=== PATIENT | male | born 1950 | race Caucasian/White ===

== ENCOUNTER 2022-09-19 12:03 | Outpatient (REF) | payer MEDICARE, SELFPAY ==
[2022-09-19 15:02] LABS: Prostate Specific Antigen 0.77 ng/mL (<0.05-4.0)
== END 2022-09-19 12:04 | disposition home or self-care (01) ==
LOC: HO.MANLDS 12:03
PROVIDERS: Visit Provider Internal Medicine
DX: N40.1 Benign prostatic hyperplasia with lower urinary tract symptoms (principal); Z12.5 Encounter for screening for malignant neoplasm of prostate
CPT/HCPCS: 36415; 84153

== ENCOUNTER 2025-01-18 14:15 | Outpatient (REF) | payer MEDICARE, SELFPAY ==
--- OUTSIDE RECORDS SUMMARY | 2025-01-18 17:58 | XMS_ITS | Data Portability ---
Author Organization [place] - [facility], Allergy Address [address] [place] [id number] Care Team Providers Care [employer] Clerk Name Role Phone JAYNA VEGA Primary Care Provider [phone] Assessment Encounter Date Assessment Date Assessment LastModified by Organization Details LastModified Time 12/02/2024 12/02/2024 The patient demonstrates hearing loss, primarily attributed to nerve loss. There is no evidence of issues with the small bones in the ears or the eardrum. Wax buildup was removed during the visit, and hearing aids are recommended to address the hearing loss. The patient does not require surgical intervention. 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 I do not see any evidence of fluid and given the normal tuning fork's and the updated audiometric testing I think the cerumen may have been interfering with his testing The patient has coverage for [employer] through secondary insurance, which will be utilized for hearing aids. Counseling was provided regarding the potential differences in quality between hearing aids covered by insurance and higher-end models. The patient was advised to evaluate the hearing aids and return them if unsatisfied. Follow-up instructions were provided to ensure the patient receives appropriate hearing aids and support. Procedure Documentation: - Wax removal performed bilaterally using suction vacuum. [email or web address] Not available 12/02/2024 14:38:20 Plan of Treatment Reminders Order Date Submit Date Provider Last Modified By Organization Details Last Modified Time Details Appointments None record ed. Lab None record ed. Referral None record ed. Procedures None record ed. Surgeries None record ed. Imaging None record ed. Medication Orders None record ed. Patient TargetsNo targets recorded. Patient Instructions Encounter Date Encounter Id Patient Instructions Last Modified By Organization Details Last Modified Time 12/02/2024 [id number] - Evaluate hearing aids covered by [employer] insurance. - Return hearing aids if unsatisfied. - Follow up to ensure appropriate hearing aids and support. [email or web address] Not available 12/02/2024 14:37:11 Please note: Parts of this encounter note have been generated by AI based on audio conversation. Patient consent was required prior to utilizing this technology. Content review was required prior to finalizing the note. [email or web address] Not available 12/02/2024 14:37:11 Reason for Referral None Reported. Results Created Date Observation Date Name Description Value Unit Range Abnormal Flag Note LastModifiedBy Organization Detail LastModifiedTime 12/03/19 25 audio gram No observ ation record ed. BARCODE Not Available 2024 14:56:04 Result Notes None recorded. Problems Name Problem SNOMED Code Status Onset Date Resolution Date Notes Provider Name and Address Organization Details Recorded Time Impacted cerumen of bilateral ears 1613770057816 108 Active 2024 ROSA ISELA ALCAZAR MD [address] [place] [address], [phone], [facility] 13:49:53 Sensorineur al hearing loss of bilateral ears 737506743 Active 2024 GONZAL[address] NAVAS [address], [phone], [facility] 14:13:35 Problem Notes None recorded. Procedures Surgical History Date Name Laterality Status Provider Name and Address Organization Details Recorded Time Comp Audio with Tymps - 24831 & 03026 completed STAR GARCIA [address] [place] [address],[address], [phone], [facility] - [facility] 12/02/2024 14:13:32 hernia repair completed Laquita Hamilton [facility] 12/02/2024 13:49:45 Imaging Results None recorded. Procedure Notes None recorded. Medical Equipment None Reported. Allergies Allergen ID Allergen Name Allergen Category Reaction Reaction Severity Criticality Documentation Date Start Date Code Code System Note Provider Name and Address Organization Details Recorded Time 470813 Iodinated contrast media (substanc e) medicatio n Not available Not available Not available 12/02/2024 50091 2003 SNOMED Laquita collins [place] - [facility] 5 13:38:48 Medications Name Sig Start Date Stop Date Status Note LastModified by Organization Details LastModified Time alprazolam 1 mg tablet TAKE 1 TABLET BY MOUTH 3 TIMES A DAY NEEDED FOR PANIC ATTACK active Not Available Not Available No t Available fluconazole 150 mg tablet TAKE 1 TABLET BY MOUTH EVERY DAY FOR 7 DAYS 12/02 completed Not Available Not Available Not Available divalproex 500 mg tablet,winston yed release TAKE 1 TABLET BY MOUTH TWICE A DAY active Not Available Not Available No t Available morphine ER 30 mg tablet,exte nded release TAKE 1 TABLET BY MOUTH TWICE A DAY. TAKE IN THE MORNING AND THEN 12 HOURS LATER. active Not Available Not Available No t Available tamsulosin 0.4 mg capsule TAKE 1 CAPSULE BY MOUTH EVERY DAY active Not Available Not Available No t Available morphine 30 mg immediate release tablet TAKE 1 TAB BY MOUTH THREE TIMES A DAY DIRECTED FOR SEVERE PAIN 12/02 completed Not Available Not Available Not Available paroxetine 30 mg tablet TAKE 1 TABLET BY MOUTH EVERY DAY active Not Available Not Available No t Available clotrimazol e-betametha sone 1 %-0.05 % topical cream PLEASE SEE ATTACHED FOR DETAILED DIRECTION S 12/02 completed Not Available Not Available Not Available Flovent 110 mcg/actuati on aerosol inhaler Inhale 1 puff twice a day by inhalatio n route. active Not Available Not Available No t Available albuterol sulfate HFA 90 mcg/actuati on aerosol inhaler TAKE 2 PUFFS BY MOUTH EVERY 4 HOURS NEEDED active Not Available Not Available No t Available Lomotil 2.5 mg-0.025 mg tablet Take 2 tablets 4 times a day by oral route. active Not Available Not Available No t Available ipratropium bromide 42 mcg (0.06 %) nasal spray USE 1 TO 2 SPRAYS IN EACH NOSTRIL 4 TIMES A DAY NEEDED active Not Available Not Available No t Available ketoconazol e 2 % topical cream APPLY TO AFFECTED AREA TWICE A DAY 12/02 completed Not Available Not Available Not Available fluticasone propionate 50 mcg/actuati on nasal spray,suspe nsion [place] 1 spray every day by intranasa l route. active Not Available Not Available No t Available finasteride 5 mg tablet TAKE 1 TABLET BY MOUTH EVERY DAY FOR 30 DAYS active Not Available Not Available No t Available cyclobenzap rine 5 mg tablet TAKE 1 TAB UP TO 2 TIMES PER DAY NEEDED FOR MUSCLE SPASM. 3 MONTH SUPPLY 12/02 completed Not Available Not Available Not Available azelastine 137 mcg-flutica sone 50 mcg/spray nasal spray SPRAY 1 SPRAY INTO EACH NOSTRIL TWICE A DAY 2024 active Not Available Not Available Not Avai lable buprenorphi ne 7.5 mcg/hour weekly transdermal patch APPLY 1 PATCH TO SKIN WEEKLY, 1 MONTH SUPPLY 12/02 completed Not Available Not Available Not Available Vitals Date Recorded Body height Body mass index (BMI) Body weight Provider Name and Address Organization Details Last Updated DateTime 12/02/2024 180.34 cm 26.5 kg/m2 69676.55 g Laquita Hamilton [place] - [facility] 12/02/2024 13:38:41 Social History None recorded. Functional Status None recorded. Mental Status None recorded. Family History Nothing Reported. Medical History Condition Response Depression Y Arthritis Y Allergies/Hayfever Y Anxiety Y Asthma Y Hypertension Y Past Encounters Encounter ID Performer Location Encounter Start Date Encounter Closed Date Diagnosis/Indication Diagnosis SNOMED-CT Code Diagnosis ICD10 Code Diagnosis IMO Codes Diagnosis Note [id number] ROSA ISELA SCHMIDT MD [facility] [address] [address] 12/02/2024 12:46:17 12/02/2024 14:38:53 Impacted cerumen of bilateral ears [id number] 596328 H61.23 067919 Sensorineu ral hearing loss of bilateral ears 960253426 H90.3 [id number] STAR GARCIA [facility] [address] [address] 12/02/2024 14:12:24 12/06/2024 14:00:53 Sensorineural hearing loss of bilateral ears 350319514 H90.3 [id number] Audiologic al evaluation results: Right ear: Mild sloping to profound sensorineu ral hearing loss with excellent word recognitio n. Left ear: Mild sloping to severe sensorineu ral hearing loss with excellent word recognitio n. Tympanomet ry: Right Ear:Type A Left Ear:Type C Health Concerns Section Related Observation LastModified by Organization Detai ls LastModified Time None Recorded Concern Status LastModified by Organization Details LastModified Time None Recorded Advance Directives Directive None Recorded Payers Insurance Date Sequence Insurance Name Policy Number Policy [place] Covered Member ID [place] Member ID Guarantor Name 12/02/2024 1 [place] [employer] [employer] Sha Tinajero Jr [id number] Sha Tinajero 12/02/2024 2 [place] [id number] Sha Tinajero Jr [id number] Sha Tinajero Notes Date Note Type Note Provider Name and Address Organization Details Recorded Time 12/02/2024 text/html Sha Tinajero is a 74-year-old male who presents for evaluation of bilateral hearing loss. The patient reports experiencing ringing in both ears for as long as he can remember, with symptoms becoming very noticeable over the last couple of years. He was previously evaluated in September at [facility], where mixed hearing loss was identified, and it was recommended that he see an ear, nose, and throat specialist due to concerns about potential issues with the small bones in the ears. 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 ROSA ISELA TURNER MD [address] [place] [address], [phone], [facility] 12/02/2024 14:38:34
--- OUTSIDE RECORDS SUMMARY | 2025-01-18 17:58 | XMS_ITS | Data Portability ---
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 stockings for leg edema will also have him see a vascular dr for eval of poss etiologies as i am unable to determine [id number] Harvey Vega [facility] [address], [place] [address] 06/16/2018 14:56:00 06/16/2018 16:16:38 Edema of lower extremity 823842724 R60.0 will wear support stockings for leg edema will also have him see a vascular dr for eval of poss etiologies as i am unable to determine Reactive a irway disease 9837577729 06 J45.909 doing very welll now asymptomat ivc seen by dr clement Anxiety 03405981 F41.9 hard to sleep at night [id number] Harvey Vega [facility] [address] [facility],[place] [id number] 12/08/2018 14:46:15 12/08/2018 16:05:14 Panic disorder 084920034 F41.0 is having about tw0 episodes during the day but this has been the standard because of the poss of a reaction to the duloxetine i will lower his duloxetine to 30 Edema of l ower extremity 272974422 R60.0 will wear support stockings for leg edema will also have him see a vascular dr for eval of poss etiologies as i am unable to determine Generalize d skin eruption caused by drug and medicament 265883180 L27.0 will decrease the dose to 30mg [id number] Harvey Vega [facility] [address] [facility],[place] [address] 02/11/2019 11:27:27 02/11/2019 12:06:35 Right side sciatica 9975388494 09211 M54.31 [id number] Harvey Vega [facility] [address] [facility],[place] [address] 06/12/2019 14:25:45 06/12/2019 15:26:50 Anxiety 34075923 F41.9 hard to sleep at night relates not doing well since he had decreased the dose back in the fall Panic disorder 267718043 F41.0 is having about tw0 episodes during the day at least and is not functionin g Adult heal examination 230708596 Z00.00 [id number] Harvey Vega [facility] [address] [facility],[place] [address] 08/26/2019 13:57:54 08/26/2019 14:41:00 Edema of lower extremity 085251916 R60.0 will wear support stockings for leg edema has been seen by vascular Benign pro static hyperplasia 152312727 N40.1 psa is 0.97 does well with tamsulosin Panic disorder 114290852 F41.0 has been stable since on duloxetine [id number] Harvey Vega, [facility] [address] [facility], [place] [address] 09/09/2019 10:27:29 09/09/2019 11:20:35 Generalized skin eruption caused by drug and medicament 159919408 L27.0 stop the cortisone cream will have him use lotrimin and cover with desitin after thorouhg== ghly drying with hairspring assembler Benign pro static hyperplasia 179349956 N40.1 psa is 0.97 does well with tamsulosin except having a lot of dripping will need to cont to take this as it makes a huge diff [id number] Harvey Vega, [facility] [address], [place] [address] 06/22/2020 15:07:55 06/22/2020 16:14:34 Anxiety 97314956 F41.9 hard to sleep at night relates not doing well since he had decreased the dose back in the fall but now we are worried about his 30 lb wgt gain? also it seems that the duloxetine has caused a problem with his skin>>>>>? CONSIDER CHANGE TO EFFEXOR Panic disorder 786346126 F41.0 has been stable since on duloxetine but question if having symptoms as noted above Tinea corporis 14585033 B35.4 use the ketoconaoz le STOP USING IVORY SOAP AND DETERGENT SOAP add difucan tablet and prednisone Tinea pedis 1165500 B35. 3 will have him [place] ketoconazo le [id number] Harvey Vega, [facility] [address] [facility],[place] [address] 07/06/2020 15:56:54 07/06/2020 16:41:46 Edema of lower extremity 694480845 R60.0 will wear support stockings for leg edema has been seen by vascular Anxiety 26699375 F41.9 much better and we will cont venalfax Depressive disorder 3541 9005 F32.9 has been a n issue but is finally doing better [place] [id number] Harvey Vega [facility] [address] [facility],[place] [address] 10/18/2020 13:54:26 10/18/2020 14:58:40 Anxiety 76185354 F41.9 we will have to try the paxil again per pt request Edema of l ower extremity 228012860 R60.0 will wear support stockings for leg edema has been seen by vascular [id number] Harvey Vega [facility] [address] [facility], [place] [address] 11/25/2020 14:26:59 11/25/2020 15:35:04 Tinea cruris caused by Trichophyton rubrum 50013754 B35.6 Edema of l ower extremity 729894248 R60.0 will wear support stockings for leg edema discussed the use of zipper support hose has been seen by vascular Tobacco de pendence syndrome 37902511 F17.200 not stopping Abdominal aortic aneurysm screening 712976481 Z13.6 [id number] Harvey Vega, [facility] [address] [facility], [place] [address] 07/25/2021 15:50:49 07/25/2021 16:39:04 Anxiety 15834343 F41.1 will increase Panic disorder 462865945 F41.0 stable on current dose of xanax Benign pro static hyperplasia with outflow obstruction 508082637 N13.8 needs refill of his medication Muscle pain 46222495 M79 .18 the patient has multiple aches in mutliple places after the vaccinewil l hold on work up Seborrheic dermatitis 50 205701 L21.8 currently doing okayif he has another flare up he can call for treatment Lymphedema of lower extremity 886997388 I89.0 bilateral, R>L, uses compressio n stockingsa lready saw the lymphedema clinic, no improvemen t with methods they used [id number] Harvey Vega [facility] [address] [facility],[place] [address] 09/19/2022 11:22:46 09/19/2022 13:32:37 Panic disorder 106549653 F41.0 we have him back on the paxil and he seems stable with this and also has noted to have gained wgt since then Anxiety 02053754 F41.9 we will have to try the paxil again per pt request Benign pro static hyperplasia 474254807 N40.1 psa is 0.97 does well with tamsulosin except having a lot of dripping will need to cont to take this as it makes a huge diff Lymphedema of lower extremity 570618230 I89.0 cont to have him with the usual treatment we have done for years Rash of groin 0100919867 9674478 R21 noted since the prostate leakage of urine Localized eruption of skin 479494082 R21 has tinea of his left axilla will use the betameth clotrim Pain of le ft ankle joint 5566819567 4188050 M25.572 will start with an xr [id number] Harvey Vega [facility] [address] [facility],[place] [address] 10/02/2023 13:51:39 10/02/2023 14:53:09 Renewal of prescription 738134988 Z76.0 done Depression screening 171 409726 Z13.31 equiv Irritable bowel syndrome with diarrhea 452341451 K58.0 needs refill Tinea cruris 267166451 B 35.6 Hearing loss 15801151 H9 1.93 Adult heal th examination 540671417 Z00.00 [id number] Harvey Vega [facility] [address] [facility],[place] [address] 05/25/2024 08:30:44 05/25/2024 16:16:49 Edema of lower extremity 784643947 R60.0 will wear support stockings for leg edema discussed the use of zipper support hose has been seen by vascular Panic disorder 131472304 F41.0 we have him back on the paxil and he seems stable with this and also has noted to have gained wgt since then Benign pro static hyperplasia 905717506 N40.1 psa is 0.97 does well with tamsulosin except having a lot of dripping will need to cont to take this as it makes a huge diff but we will add finasterid e 5 mg and he will get back to me in a month Male hot flash 866911046 1 50780 R23.2 will try black cohosh let me klnow [id number] Harvey Vega, [facility] [address] [facility],[place] [address] 09/25/2024 15:01:25 09/25/2024 15:43:18 Depression screening 938855190 Z13.31 equiv Exudative age-related macular degeneration 899908007 H35.3211 04670759 having active treatment with [facility] Left inguinal hernia 236 260934 K40.90 279421 Pre-surger y evaluation 707360700 Z01.818 is here for surgical pre op eval and is certainly cleared for his proposed cataract removal Health Concerns Section Related Observation LastModified by Organization Detai ls LastModified Time None Recorded Concern Status LastModified by Organization Details LastModified Time None Recorded Advance Directives Directive None Recorded Payers Insurance Date Sequence Insurance Name Policy Number Policy Valencia Covered Member ID Valencia Member ID Guarantor Name 2025 2 [place] [id number] Sha Tinajero Jr [id number] Sha Tinajero 2025 1 [place] [employer] Sha Tinajero Jr [id number] Sha Tinajero Notes Date Note Type Note Provider Name a nd Address Organization Details Recorded Time 07/25/2021 text/html ROS as noted in the HPI medication check the patient was on paxil prior, found out he was on 30 mgmedication adjusted in the chart to appropriate dosing the patient reports that he is doing wellthe patient reports muscle aches > stable for now, the patient reports that they are doing well todaywill monitor now the patient reports previous rash, possibly seborrheic dermatitisif it comes back told to call for treatment options refilled medication varicose veins bilateral LE'swill monitor ALISA BELL [address] [facility], [place], [address], [facility] 07/25/2021 16:36:20 09/19/2022 text/html ROS as noted in the HPI here for his follow up of his medsalso states that he has been having issues with urine leakage states has been getting rash in groin prob from moisturealso states he stopped the flomax on his own and states this may have helped a little but is still a problemhas been having some bilat ankle pain and is along the dorsiflexor area L>R he is sedentary back pain is his usualstill smoking as usual Harvey Vega DO [address] [place], [address], [facility] 09/19/2022 11:51:49 10/02/2023 text/html needs refill for his abdomen Harvey Vega DO [address] [place] [address], [phone], [facility] 10/02/2023 14:48:03 05/25/2024 text/html ROS as noted in the HPI patient is evaluated via tele/video assessment per patient consentduring current pandemicappt is for a med check Harvey Vega DO [address] [place] [address], [phone], [facility] 05/25/2024 16:00:21 09/25/2024 text/html ROS as noted in the HPI here for medication reviewalso has a poss hernia on left no painful present for over a monthalso has wet mac degen OD and getting injections to retina Harvey Vega DO [address] [place], [address], [facility] 09/25/2024 15:38:18
--- OUTSIDE RECORDS SUMMARY | 2025-01-18 17:59 | XMS_ITS | Continuity of Care Document ---
Author Organization [facility], [facility] Address [address] [facility] [place] [address] Assessment Encounter Date Assessment Date Assessment LastModified by Organization Details LastModified Time 01/18/2025 01/18/2025 Patient presente d to office today for their Medicare Annual Wellness Visit. Education was provided on healthy nutrition, including a diet rich in fruits and vegetables, minimizing simple carbohydrates, salt, and saturated fats. Encouraged regular cardiovascular exercise such as walking at least 30 minutes daily, 5 times per week. Emphasized preventive health measures and educated pt on fall prevention and community-based lifestyle interventions to help reduce health risks and promote healthy living. [email or web address] Not available 01/13/2025 11:06:45 Plan of Treatment Reminders Order Date Submit Date Provider Last Modified By Organization Details Last Modified Time Details Appointments MEDICARE ANNUAL WELLNESS 2024 01:30P M DR VEGA Not available Not available Not available Lab hemoglobi n, gastroint estinal, stool 2024 [facility], [address] [place] [address], [address], 01/18/2025 14:16:34 C-reactiv e protein, quantitat sera, serum or plasma 2024 025 [facility], [address] [place] [address], [place], [address], 01/18/2025 14:16:33 CBC 2024 [facility], [address] [place] [address], [address], 01/18/2025 14:16:34 CMP, serum or plasma 2024 [facility], [address] [place] [address], [place], [address], 01/18/2025 14:16:34 ESR (erythroc yte sedimenta tion rate), blood 2024 [facility], [address] [place] [address], [place], [address], 01/18/2025 14:16:33 vitamin B12, serum 2024 [facility], [address] [place] [address], [place], [address], 01/18/2025 14:16:34 TSH, serum or plasma 2024 [facility], [address] [place] [address], [place], [address], 01/18/2025 14:16:34 Referral None recorded. Procedures None recorded. Surgeries None recorded. Imaging None recorded. Medication Orders None recorded. Patient TargetsNo targets recorded. Patient Instructions Encounter Date Encounter Id Patient Instructions Last Modified By Organization Details Last Modified Time 01/18/2025 [id number] Discussed and explained advance directives such as standard forms to the . Face to face discussion lasted for a duration of ___ minutes. [email or web address] Not available 01/13/2025 11:06:45 Reason for Referral None Reported. Problems Name Problem SNOMED Code Status Onset Date Resolution Date Notes Provider Name and Address Organization Details Recorded Time Irritabl e bowel syndrome 14186292 Active 2017 Not Available [facility] 4 09:45:47 Hyperten sive disorder 80617996 Completed 201703/12/2018 Harvey Vega, DO [address] [place], [address], [facility] 8 14:57:54 Pilonida l cyst 49531433 Active 2017 Not Available [facility] 4 09:45:47 Rosacea 674691818 Active 2017 Not Available [facility] 4 09:45:47 Anxiety 57071331 Active 2017 Not Available [facility] 4 09:45:47 Panic disorder 727329553 Active 2017 Not Available [facility] 4 09:45:47 Benign prostati c hyperpla marlene 127309630 Active 2017 Not Available [facility] 4 09:45:47 Reactive airway disease 30775679956 6 Active 2017 Not Available [facility] 4 09:45:47 Edema of lower extremit y 198470316 Active 2018 Not Available [facility] 4 09:45:47 Tinea cruris caused by Trichoph yton rubrum 37976285 Active 2020 Not Available [facility] 4 09:45:47 Tobacco dependen ce syndrome 30349582 Active 2020 Not Available [facility] 4 09:45:47 Benign prostati c hyperpla marlene with outflow obstruct ion 954426001 Active 2021 Not Available [facility] 4 09:45:47 Muscle pain 19900642 Active 2021 Not Available [facility] 4 09:45:47 Seborrhe ic dermatit is 92958858 Active 2021 Not Available [facility] 4 09:45:47 Lymphede ma of lower extremit y 514200190 Active 2021 Not Available [facility] 4 09:45:47 Rash of groin 42700007557 491563 Active 2022 Not Available [facility] 4 09:45:47 Localize d eruption of skin 700841508 Active 2022 Not Available [facility] 4 09:45:47 Pain of left ankle joint 25031551558 093294 Active 2022 Not Available [facility] 4 09:45:47 Tinea cruris 986777285 Active 2023 Harvey Vega DO [address] [place] [address], [address], [facility] 4 14:33:36 Irritabl e bowel syndrome with diarrhea 925695196 Active 2023 Harvey Vega DO [address] [place] [address], [address], [facility] 4 14:40:57 Hearing loss 50181836 Active 2023 Harvey Vega DO [address] [place] [address], [address], [facility] 4 14:45:56 Male hot flash 37285739123 9100 Active 2024 Harvey Vega DO [address] [place] [address], [address], [facility] 5 15:59:19 Exudativ e age-rela sarita macular degenera tion 675661563 Active 2024 Harvey Vega DO [address] [place] [address], [address], [facility] 5 15:35:10 Left inguinal hernia 800760255 Active 2024 Harvey Vega [address] [place] [address], [address], [facility] 5 15:36:17 Fatigue 08132876 Active [address], [address], [facility] 5 14:09:14 Problem Notes None recorded. Procedures Surgical History Date Name Laterality Status Provider Name and Address Organization Details Recorded Time 03/04/20 19 Colonoscopy completed Harvey Vega DO [address] [place] [address], [address], [facility] 03/04/2019 15:39:05 Imaging Results None recorded. Procedure Notes None recorded. Medical Equipment None Reported. Allergies Allergen ID Allergen Name Allergen Category Reaction Reaction Severity Criticality Documentation Date Start Date Code Code System Note Provider Name and Address Organization Details Recorded Time 2606 Iodinated contrast media (substanc e) medicatio n Not available Not available Not available 03/12/2018 39712 2004 SNOMED Pt said he only had a react ion once and unsur e of if this is the cause . [facility] 0 14:05:56 4638 venlafaxi ne medicatio n rash moderate Not available 10/18/2020 44859 RxNorm Harvey Vega, DO [address] [place], [address], [facility] Internal [facility] 1 14:07:32 4639 duloxetin e medicatio n Not available Not available Not available 10/18/2020 50346 RxNorm Harvey Vega, DO [address] [place], [address], [facility] 1 14:07:38 Medications Name Sig Start Date Stop [...] Details Last Updated DateTime 5 172.72 cm 24.6 kg/m2 19589.5 3 g 64 /min 94 % 94 % 110/70 mm[Hg] Abiola Emery [facility] 5 13:39:43 Social History Question Answer Notes LastModified by Organizat ion Details LastModified Time Tobacco Smoking Status Current Some Day Smoker Not Available [facility] 02/02/2020 03:36:24 What Was The Date Of Your Most Recent Tobacco Screening? 01/18/2025 [email or web address] Information not available 01/18/2025 How Much Tobacco Do You Smoke? 0.5 [...] mL dose 07/03/19 21 completed Tanisha collins [facility] 10/17/2020 16:48:03 Influenza, split virus, quadrivalent, preservative 12/13/19 18 completed Sonia collins [facility] 08/26/2019 14:05:15 Pneumococcal conjugate PCV 13 12/13/19 18 completed Sonia collins [facility] 08/26/2019 14:05:15 COVID-19, mRNA, LNP-S, PF, 30 mcg/0.3 mL dose 02/10/20 21 completed ALISA BELL [address] [place] [address], [address], [facility] 02/11/2021 09:43:10 COVID-19, mRNA, LNP-S, PF, 30 mcg/0.3 mL dose 07/14/19 22 completed Lauren collins [facility] 07/14/2021 13:29:33 SARS-COV-2 (COVID-19) vaccine, UNSPECIFIED 03/08/20 23 completed Harvey Vega DO [address] [place] [address], [address], [facility] 03/09/2023 13:05:21 Respiratory syncytial virus (RSV) MAB, unspecified 04/25/19 24 completed Harvey Vega DO [address] [place] [address], [address], [facility] 04/27/2023 15:14:23 SARS-COV-2 (COVID-19) vaccine, UNSPECIFIED 12/03/19 24 completed Harvey Vega [address], [address], [facility] 12/06/2023 06:49:29 influenza nasal, unspecified formulation 12/03/19 24 completed Harvey Vega DO [address] [place] [address], [address], [facility] 12/06/2023 06:49:43 Influenza, split virus, quadrivalent, preservative 12/10/19 19 completed Sonia collins [facility] 08/26/2019 14:05:15 pneumococcal polysaccharide PPV23 01/27/20 19 [facility] 14:05:15 Influenza, split virus, quadrivalent, preservative 01/08/20 20 [facility] 01/12/2020 08:15:59 COVID-19, mRNA, LNP-S, PF, 30 mcg/0.3 mL dose 06/19/19 21 [facility]/22/2020 15:29:17 Past Encounters Encounter ID Performer Location Encounter Start Date Encounter Closed Date Diagnosis/Indication Diagnosis SNOMED-CT Code Diagnosis ICD10 Code Diagnosis IMO Codes Diagnosis Note [id number] Harvey Vega DO [facility] [address] [facility],[address] [place] [address] 01/18/2025 13:29:13 01/18/2025 14:25:30 Screening for malignant neoplasm of colon 070957744 Z12.11 Depression screening 171 754865 Z13.31 equiv Anxiety 89848681 F41.9 we will have to try the paxil again per pt request Fatigue 60800691 R53.83 67037498 not sure where these symptoms came fromhe is apparently back to baseline now but appears profoundly fatigued Health Concerns Section Related Observation LastModified by Organization Detai ls LastModified Time None Recorded Concern Status LastModified by Organization Details LastModified Time None Recorded Payers Encounter Date Sequence Insurance Name Policy Number Policy Valencia Covered Member ID Valencia Member ID Guarantor Name 01/18/2025 2 [place] [id number] Sha Tinajero Jr [id number] Sha Tinajero 01/18/2025 1 [place] [employer] Sha Tinajero Jr [id number] Sha Tinajero Notes Date Note Type Note Provider Name and Address Organization Details Recorded Time text/html Anxiety/DepressionRepor sarita by PatientHPIFor severity, patient reportsdenies suicidal ideations,able to maintain relationships, anddoes not interfere with activities of daily living. For context, patient reportsno major life stressors. For associated symptoms, patient reportsdenies homicidal ideations,no significant weight gain,no significant weight loss,no visual/auditory hallucinations,no delusions,no shortness of breath,mood good,no anxiety,no crying spells,no panic,no isolation,sleeping well,appetite good,energy good,no apathy, andmaintaining functionality. Medicare Annual Wellness VisitReported by PatientSocial/Behaviora l HistoryFor diet and nutrition, patient reportshealthy diet. For fracture risk, patient reportsno history of fractures,no recent explained fracture,no sudden unexplained fractures, andno previous musculoskeletal injuries. For physical activity, patient reportsexercises on a regular basis,recent increase in physical activity, andgood physical condition.Mental Status:For depression risk, patient reportsnever feels sad, empty, or tearful,no loss of interest in activities,no significant changes in weight,no sleep disturbances or insomnia,no agitation,no loss of energy,no feelings of worthlessness or guilt,no thoughts of suicide,no history of depression, andno history of mood disorders. For orientation, patient reportsno disorientation to time,no disorientation to date, andno disorientation to place. For concentration and memory, patient reportsno decreased concentrating ability,no memory lapses or loss, anddoes not forget words. For speech/motor difficulties, patient reportsno speech difficulties,no difficulty expressing formulated concepts,no difficulty with fine manipulative tasks,no difficulty writing/copying,no slowed reaction time, anddoes not knock things over when trying to pick them up.Functional AbilityFor hearing, patient reportsno loss of hearing. For vision, patient reportsno vision problems. For activities of daily living, patient reportsable to bathe with limited or no assistance,able to contol urination and bowels,able to dress with limited or no assistance,able to feed self with limited or no assistance,able to get out of chair or bed with limited or no assistance,able to groom with limited or no assistance, andable to toilet with limited or no assistance. For instrumental activities of daily living, patient reportsable to do house work with limited or no assistance,able to grocery shop with limited or no assistance,able to manage medications with limited or no assistance,able to manage money with limited or no assistance,able to prepare meals with limited or no assistance, andable to use the phone with limited or no assistance. For falls risk assessment, patient reportsno frequent falls while walking,no fall in the past year,no fall since last visit, andno dizziness/vertigo. For home safety, patient reportsno unsafe marixa hazzards,no unsafe stairs,no unsafe gas appliances,working smoke/co detectors,wears protective head gear for biking/high velocity,use of seatbelts,practicing 'safer sex',no vision or hearing loss while driving,no fire arms,has hand bars in the bathroom/shower, andgood lighting in the home.ROS as noted in the HPI here for eval for wpisodes of bladder and bowel incontinenceoccured last week and this lasted 3 days and only happened during sleep Harvey Vega, DO [address] [facility], [place], [address], [facility] 01/18/2025 14:14:05
[2025-01-18 18:28] LABS: MANUAL DIFF FLAG NO
[2025-01-18 18:39] LABS: Hematocrit 37.7 % (42.0-52.0); Hemoglobin 12.8 g/dl (14.0-18.0); Imm Gran Abs Auto 0.01 X10*3/uL (0.00-0.03); Imm Gran Pct Auto 0.2 % (0.0-0.4); Lymphocytes Absolute Auto 1.0 X10*3/uL (1.2-4.9); Mean Corpuscular HGB Conc 34.0 g/dl (31.0-36.0); Mean Corpuscular Hemoglobin 32.4 pg (27.0-33.0); Mean Corpuscular Volume 95.4 fL (80.0-98.0); NRBC Abs Auto 0.000 X10*3/uL (0.0-0.012); NRBC Pct Auto 0.0 /100WBC (0.0-0.2); Platelet Count 135 X10*3/uL (160-400); Red Blood Count 3.95 X10*6/uL (4.60-5.80); White Blood Count 4.5 X10*3/uL (4.8-10.8)
[2025-01-18 18:53] LABS: Alanine Aminotransferase 13 U/L (0-40); Albumin Level 3.5 g/dL (3.5-5.0); Alkaline Phosphatase 41 U/L (39-117); Anion Gap 9 (12-20); Aspartate Amino Transferase 23 U/L (5-37); Blood Urea Nitrogen 20 mg/dL (9-16); Calcium 8.5 mg/dL (8.4-10.2); Carbon Dioxide 33 mmol/L (22-29); Chloride 100 mmol/L (96-108); Estimated Glomerular Filt Rate > 60; Potassium 3.8 mmol/L (3.3-5.1); Sodium 138 mmol/L (135-145); Total Protein 5.6 g/dL (6.5-8.0)
[2025-01-18 19:09] LABS: Thyroid Stimulating Hormone 2.12 uIU/mL (0.32-4.0)
[2025-01-18 19:13] LABS: Vitamin B12 693 pg/mL (200-900)
== END 2025-01-18 14:16 | disposition home or self-care (01) ==
LOC: HO.MANLDS 14:15
PROVIDERS: Visit Provider Internal Medicine
DX: R53.83 Other fatigue (principal)
CPT/HCPCS: 36415; 80053; 82607; 84443; 85025; 85652; 86140

== ENCOUNTER 2025-01-27 18:15 | Outpatient (REF) | payer MEDICARE, SELFPAY ==
[2025-01-30 07:29] LABS: FIT Date 1 10/27/25; FIT Date 2 10/29/25; FIT Int Ctl YES; FIT1 NEGATIVE (NEGATIVE); FIT2 NEGATIVE (NEGATIVE)
[2025-01-30 07:30] LABS: FIT Lot M502755
== END 2025-01-27 18:16 | disposition home or self-care (01) ==
LOC: HO.MANLNP 18:15
PROVIDERS: Visit Provider Internal Medicine
DX: Z12.11 Encounter for screening for malignant neoplasm of colon (principal)
CPT/HCPCS: 82274

== ENCOUNTER 2025-01-29 15:48 | Outpatient (REF) | payer MEDICARE, SELFPAY ==
--- OUTSIDE RECORDS SUMMARY | 2025-01-29 15:53 | XMS_ITS | Encounter Summary ---
Author Organization [facility] Address [address] [place] [address] Phone Care Team Providers Care Staff Psychologist Name Role Phone Harvey Ortiz DO Primary Care Provider [phone] Harvey Ortiz DO Primary Care Provider [phone] Reason for Referral * MRI/CAT Scan - Closed Specialty Diagnoses / Procedures Referred By Contac t Referred To Contact Radiology Diagnoses Degeneration of lumbar intervertebral disc Procedures MRI Lumbar Spine Harvey Ortiz DO Phone: tel: fax: [email or web address] Referral ID Status Reason Start Date Expiration Date Visits Re quested Visits Authorized [id number] Closed 02/24/2019 02/24/2020 1 1 Encounter Details Date Type Department Care Team (Late Contact Info) Description 02/24/2019 Transcribe Orders Virtual Department [address] [place] [address] Harvey Ortiz DO [address] [facility] [place] [address] [email or web address] Degeneration of lumbar intervertebral disc (Primary Dx) Social History Tobacco Use Types Packs/Day Years Used Date Smoking Tobacco: Never Assessed Sex and Gender Information Value Date Recorded Sex Assigned at Not on file Legal Sex Male 10:01 PM EDT Gender Identity Not on file Sexual Orientation Not on file documented as of this encounter Plan of Treatment Upcoming Encounters Date Type Department Care Team (Late Contact Info) Description 01/22/2025 Procedure Pass [address] [address] 03/02/2025 6:45 PM EST Appointment [address] [address] Harvey Ortiz, DO [address] [facility] [place] [address] [place] [address] [email or web address] documented as of this encounter Results * MRI LUMBAR SPINE (NEURO) WITHOUT CONTRAST (03/01/2019 2:33 PM EST) Anatomical Region Laterality Modality L-spine Magnetic Resonan ce 03/01/2019 2:38 PM EST Impressions 03/01/2019 3:02 PM EST Multilevel spondylotic change with mild canal narrowing at L4-5 and moderate foraminal narrowing at the left L3 nerve root exit with some more minor narrowing at other levels as above. No high-grade central canal stenosis or large disc protrusion. POS - [id number] Edited by: Macarena Zhang on 03/01/2019 2:52 PM Narrative 03/01/2019 3:02 PM EST HISTORY: Low back pain with right radiculopathy. COMPARISON: Radiographs February 13, 2019. TECHNIQUE: Exam performed on a 1.5 Debra high-field MRI scanner. Sagittal T1, T2 and STIR, axial T1 and T2 sequences were obtained. FINDINGS: T11-12: Degenerative disc disease with desiccation and slight disc height loss. No canal or foraminal stenosis. Mild facet degenerative change. T12-L1: No findings of concern. L1-2: Minimal disc bulging. No prominent canal or foraminal stenosis. L2-3: Relatively maintained disc height and hydration. No focal disc abnormalities of concern. L3-4: Degenerative disc disease with disc height loss and diffuse disc bulging. Minor central canal narrowing with some mild lateral recess impingement bilaterally. There is scoliosis convex right with the apex at the disc space. There is foraminal narrowing of a minor degree on the right with moderate foraminal narrowing and some mass effect on the left L3 nerve root at that side. L4-5: Advanced facet arthropathy with some trace anterolisthesis as a result. There is slight uncovering of the disc space and disc bulging, more towards the right, as a result. There is right-sided foraminal narrowing with some mild mass effect on the nerve root. Lesser narrowing at the left L4 nerve root exit. There is bilateral lateral recess impingement, more prominent on the right, related to the hypertrophic changes of facets and ligamentum flavum. There is mild central canal narrowing. L5-S1: Degenerative disc disease with prominent disc height loss and mild disc ridge complex. Mild foraminal narrowing on the right with some minor contribution from mild facet degenerative change. No high-grade canal or foraminal stenosis. No worrisome marrow signal changes are appreciated. No compression deformity. Study not tailored for evaluation of regional soft tissues but no adenopathy or other soft tissue finding of concern is identified in the [id number]. Procedure Note Ana Rosa Christianson MD - 03/01/2019 HISTORY: Low back pain with right radiculopathy. COMPARISON: Radiographs February 13, 2019. TECHNIQUE: Exam performed on a 1.5 Debra high-field MRI scanner. SagittalT1, T2 and STIR, axial T1 and T2 sequences were obtained. FINDINGS: T11-12: Degenerative disc disease with desiccation and slight disc heightloss. No canal or foraminal stenosis. Mild facet degenerative change. T12-L1: No findings of concern. L1-2: Minimal disc bulging. No prominent canal or foraminal stenosis. L2-3: Relatively maintained disc height and hydration. No focal discabnormalities of concern. L3-4: Degenerative disc disease with disc height loss and diffuse discbulging. Minor central canal narrowing with some mild lateral recessimpingement bilaterally. There is scoliosis convex right with the apex atthe disc space. There is foraminal narrowing of a minor degree on theright with moderate foraminal narrowing and some mass effect on the leftL3 nerve root at that side. L4-5: Advanced facet arthropathy with some trace anterolisthesis as aresult. There is slight uncovering of the disc space and disc bulging,more towards the right, as a result. There is right-sided foraminalnarrowing with some mild mass effect on the nerve root. Lesser narrowingat the left L4 nerve root exit. There is bilateral lateral recessimpingement, more prominent on the right, related to the hypertrophicchanges of facets and ligamentum flavum. There is mild central canalnarrowing. L5-S1: Degenerative disc disease with prominent disc height loss and milddisc ridge complex. Mild foraminal narrowing on the right with some minorcontribution from mild facet degenerative change. No high-grade canal orforaminal stenosis. No worrisome marrow signal changes are appreciated. No compressiondeformity. Study not tailored for evaluation of regional soft tissues but noadenopathy or other soft tissue finding of concern is identified in [id number]. IMPRESSION: Multilevel spondylotic change with mild canal narrowing at L4-5 andmoderate foraminal narrowing at the left L3 nerve root exit with some moreminor narrowing at other levels as above. No high-grade central canalstenosis or large disc protrusion. POS - [id number] Edited by: Macarena Zhang on 03/01/2019 2:52 PM Harvey Ortiz DO IMG MR XSPECIALTY Final Result documented in this encounter Visit Diagnoses Diagnosis Degeneration of lumbar intervertebral disc- Primary Degeneration of lumbar or lumbosacral intervertebral disc Degeneration of lumbar intervertebral disc Degeneration of lumbar or lumbosacral intervertebral disc documented in this encounter Care Teams Staff Psychologist Relationship Specialty Start Date End Date Harvey Ortiz DO PCP - General Internal Medicine 03/12/18 11/30/24 Harvey Ortiz DO [address] [place] [address] PCP - General Internal Medicine 12/01/24 documented as of this encounter Additional Source Comments The information contained in this document represents components of the legal health record. It is not the complete legal health record.[facility]
--- OUTSIDE RECORDS SUMMARY | 2025-01-29 15:53 | XMS_ITS | Encounter Summary ---
Author Organization Located Within [facility] Address [address] [place] [address] Phone Care Team Providers Care Cross Tie Turner Name Role Phone Harvey Ortiz DO Primary Care Provider [phone] Harvey Ortiz DO Primary Care Provider [phone] Encounter Details Date Type Department Care Team (Late st Contact Info) Description 09/19/2022 Transcribe Orders [facility] [address] [place] [address] Harvey Ortiz DO [address] [place] [address] [email or web address] Pain in left ankle and joints of left foot (Primary Dx) Social History Tobacco Use Types Packs/Day Years Used Date Smoking Tobacco: Every Day Cigarettes Smokeless Tobacco: Never Education Answer Date Recorded Are you interested in more education? Not on chace e 07/27/2022 Are you concerned about learning? Not on file 07/27/2022 No 07/27/2022 No 07/27/2022 Digital Access Answer Date Recorded No 08/25/2022 No 08/25/2022 Reliable internet access at home? Not on file 08/25/2022 Device with a working camera? Not on file Sex and Gender Information Value Date Recorded Sex Assigned at Not on file Legal Sex Male 10:01 PM EDT Gender Identity Not on file Sexual Orientation Not on file documented as of this encounter Plan of Treatment Upcoming Encounters Date Type Department Care Team (Late st Contact Info) Description 01/22/2025 Procedure [facility] [address] [place] [address] 03/02/2025 6:45 PM EST Appointment [facility] [address] [place] [address] Harvey Ortiz DO [address] [place] [address] [email or web address] documented as of this encounter Results * XR ANKLE 3 OR MORE VIEWS (LEFT) (09/21/2022 11:41 AM EDT) Anatomical Region Laterality Modality Ankle Left Computed Radiogr aphy 09/24/2022 12:0 4 AM EDT Impressions 09/24/2022 12:05 AM EDT Mild tibiotalar degenerative change. No acute osseous abnormality. Narrative 09/24/2022 12:05 AM EDT XR ANKLE 3 OR MORE VIEWS (LEFT) COMPARISON: None FINDINGS: No acute fracture or dislocation. Ankle mortise symmetric. No significant soft tissue swelling. Mild tibiotalar joint space narrowing. Procedure Note Ziyad Ness MD - 09/24/2022 XR ANKLE 3 OR MORE VIEWS (LEFT) COMPARISON: None FINDINGS: No acute fracture or dislocation. Ankle mortise symmetric. No significantsoft tissue swelling. Mild tibiotalar joint space narrowing. IMPRESSION: Mild tibiotalar degenerative change. No acute osseous abnormality. Harvey Ortiz DO IMG XR LOWER EXTREMITY Final Res ult documented in this encounter Visit Diagnoses Diagnosis Pain in left ankle and joints of left foot- Primary Pain in left ankle and joints of left foot documented in this encounter Care Teams Cross Tie Turner Relationship Specialty Start Date End Date Harvey Ortiz DO PCP - General Internal Medicine 03/12/18 11/30/24 Harvey Ortiz DO [address] [place] [address] PCP - General Internal Medicine 12/01/24 documented as of this encounter Additional Source Comments The information contained in this document represents components of the legal health record. It is not the complete legal health record.Located Within [facility]
--- OUTSIDE RECORDS SUMMARY | 2025-01-29 15:53 | XMS_ITS | Data Portability ---
[facility] Patient Home Address [address] [place] [address] Assessment Encounter Date Assessment Date Assessment LastModified by Organization Details LastModified Time 09/19/2022 09/19/2022 [address]81 [place] [address] (AUTHOR'S AGENT) [facility] HIGH MUST MEET 2 OUT OF 3 [...] expressed understanding. Follow up as noted [place]. [id number] [place] [id number] (AUTHOR'S AGENT) [facility] HIGH MUST MEET 2 OUT OF 3 [...] COVERED Not available 10/02/2023 14:46:28 05/25/2024 05/25/2024 69554 or 27553 (AUTHOR'S AGENT) MDM MODERATE MUST MEET 2 OUT OF [...] COVERED Not available 05/25/2024 15:59:12 09/25/2024 09/25/2024 [address] [place] [address] (AUTHOR'S AGENT) : MDM LOW MUST MEET 2 OF [...] THE ELEMENTS COVERED Not available 09/25/2024 15:35:43 01/18/2025 01/18/2025 Patient presente d to office [...] Details Last Modified Time Details Appointments None recorded. Lab hemoglobin , gastrointe stinal, stool 2024 [facility], [address] [place] [address], [address], 14:16:34 C-reactive protein, quantitati ve, serum or plasma 2024 [facility], [address] [place] [address], [address], 14:16:33 CBC 2024 [facility], [address] [place] [address], [address], 5 14:16:34 CMP, serum or plasma 2024 [facility], [address] [place] [address], [address], 12:47:10 ESR (erythrocy te sedimentat ion rate), blood 2024 [facility], [address] [place] [address], [address], 14:16:33 vitamin B12, serum 2024 [facility], [address] [place] [address], [address], 5 14:16:34 TSH, serum or plasma 2024 [facility], [address] [place] [address], [address], 5 14:16:34 glucose, QN [mass/volu me], serum or plasma 2024 [facility], [address] [place] [address], [address], 5 15:38:12 HbA1c (hemoglobi n A1c), blood 2024 025 [facility], [address] [place] [address], [address], 5 15:38:12 CMP, serum or plasma 2023 024 [facility], [address] [place] [address], [address], 4 12:54:49 CBC w/ auto diff 2023 024 [facility], [address] [place] [address], [address], 4 12:17:40 PSA, serum or plasma 2023 024 [facility], [address] [place] [address], [address], 4 13:01:16 lipid panel, blood 2023 024 [facility], [address] [place] [address], [address], 4 12:42:14 vitamin D, 25-hydroxy , total, serum 2023 024 [facility], [address] [place] [address], [address], 4 14:53:09 PSA, serum or plasma 2022 023 [facility], [address] [place] [address], [address], 3 11:24:29 Referral general surgeon referral 2024 025 nadine Dangelo MD, [address], [place], [address], 5 09:13:07 [facility], [address] [facility], [place], [address], 4 09:36:11 Procedures None recorded. Surgeries None recorded. Imaging electrocar diogram 2024 025 [facility] Raheem [facility] (Cardiology), [address] [place], [address], 5 08:56:39 XR, ankle, 3 or more view 2022 023 MOISE Not available 3 00:10:02 Medication Orders finasterid e 5 mg tablet 2024 025 [facility] [address] [place], [address], 5 15:56:25 diphenoxyl ate-atropi ne 2.5 mg-0.025 mg tablet 2023 024 [facility] [address] [place], [address], 4 14:42:38 ketoconazo le 2 % topical cream 2023 025 [facility] [address] [place], [address], 5 15:51:25 Diflucan 150 mg tablet 2023 025 [facility] [address] [place], [address], 5 15:51:34 Silvadene 1 % topical cream 2023 024 [facility]acy #2024, [address] [place], [address], 15:51:02 clotrimazo le-betamet hasone 1 %-0.05 % topical cream 2022 023 [facility] #2024, [address] [place], [address], 15:51:53 alfuzosin ER 10 mg tablet,ext ended release 24 hr 2022 023 [facility] #2024, [address] [place], [address], 15:49:44 Patient TargetsNo targets recorded. Patient Instructions Encounter Date Encounter Id Patient Instructions Last Modified By Organization Details Last Modified Time 09/19/2022 [id number] benign prostatic hyperplasia: care instructions Not available 09/19/2022 11:44:27 10/02/2023 [id number] hearing loss: care instructions Not available 10/02/2023 14:45:57 jock itch: care instructions Not available 10/02/2023 14:42:33 05/25/2024 [id number] leg and ankle edema: care instructions Not available 05/25/2024 15:56:23 benign prostatic hyperplasia: care instructions Not available 05/25/2024 15:56:23 09/25/2024 [id number] inguinal hernia: care instructions Not available 09/25/2024 15:36:51 01/18/2025 [id number] Discussed and explained advance directives such as standard forms to the . Face to face discussion lasted for a duration of ___ minutes. [email or web address] Not available 01/13/2025 11:06:45 Reason for Referral Hearing Screening Referral f or Hearing loss Referring Physician: Harvey Ortiz, Internal Medicine, Encounter Date: 10/02/2023 General Surgeon Referral for Left inguinal hernia Referring Physician: Harvey Ortiz, Internal Medicine, Encounter Date: 09/25/2024 Results Created Date Observation Date Name Description Value Unit Range Abnormal Flag Note LastModifiedBy Organization Detail LastModifiedTime 09/25/19 23 09/21/2022 XR, ankle , 3 or more view No observ ation record ed. [address] [address], [place], [address], 09/24/2022 08:19:20 Result Notes None recorded. Problems Name Problem SNOMED Code Status Onset Date Resolution Date Notes Provider Name and Address Organization Details Recorded Time Irritabl e bowel syndrome 88736423 Active 2017 Not Available [facility] 4 09:45:47 Hyperten sive disorder 62830231 Completed 201703/12/2018 Harvey Ortiz, DO [address] [place] [address], [address], [facility] 8 14:57:54 Pilonida l cyst 77412889 Active 2017 Not Available [facility] 4 09:45:47 Rosacea 521472159 Active 2017 Not Available [facility] 4 09:45:47 Anxiety 23407399 Active 2017 Not Available [facility] 4 09:45:47 Panic disorder 955370147 Active 2017 Not Available [facility] 4 09:45:47 Benign prostati c hyperpla marlene 902369530 Active 2017 Not Available [facility] 4 09:45:47 Reactive airway disease 34078823518 6 Active 2017 Not Available [facility] 4 09:45:47 Edema of lower extremit y 273057961 Active 2018 Not Available [facility] 4 09:45:47 Tinea cruris caused by Trichoph yton rubrum 12906849 Active 2020 Not Available [facility] 4 09:45:47 Tobacco dependen ce syndrome 12926580 Active 2020 Not Available [facility] 4 09:45:47 Benign prostati c hyperpla marlene with outflow obstruct ion 339318133 Active 2021 Not Available [facility] 4 09:45:47 Muscle pain 03383913 Active 2021 Not Available [facility] 4 09:45:47 Seborrhe ic dermatit is 59905637 Active 2021 Not Available [facility] 4 09:45:47 Lymphede ma of lower extremit y 503391850 Active 2021 Not Available [facility] 4 09:45:47 Rash of groin 95468459644 189125 Active 2022 Not Available [facility] 4 09:45:47 Localize d eruption of skin 766765309 Active 2022 Not Available [facility] 4 09:45:47 Pain of left ankle joint 28512211221 686520 Active 2022 Not Available [facility] 4 09:45:47 Tinea cruris 820221482 Active 2023 Harvey Ortiz, [address] [place] [address], [address], [facility] 4 14:33:36 Irritabl e bowel syndrome with diarrhea 769894631 Active 2023 Harvey Ortiz, [address] [place] [address], [address], [facility] 4 14:40:57 Hearing loss 76192274 Active 2023 Harvey Ortiz DO [address] [place] [address], [address], [facility] 4 14:45:56 Male hot flash 42248496504 9100 Active 2024 Harvey Ortiz DO [address] [place] [address], [address], [facility] 5 15:59:19 Exudativ e age-rela sarita macular degenera tion 434124166 Active 2024 Harvey Ortiz DO [address] [place] [address], [address], [facility] 5 15:35:10 Left inguinal hernia 841584546 Active 2024 Harvey Ortiz DO [address] [place] [address], [address], [facility] 5 15:36:17 Fatigue 37271267 Active 2024 Harvey Ortiz DO [address] [place] [address], [address], [facility] 5 14:09:14 Weakness of left lower limb Active 2024 Harvey Ortiz [address] [place] [address], [address], [facility] 5 22:24:03 Left hemipleg ia 622783808 Active 2024 Harvey OrtizDO [address] [place] [address], [address], [facility] 5 22:25:06 Constipa tion 55491582 Active 2024 Harvey OrtizDO [address] [place] [address], [address], [facility] 5 22:26:11 Problem Notes None recorded. Procedures Surgical History Date Name Laterality Status Provider Name and Address Organization Details Recorded Time 03/04/20 19 Colonoscopy completed Harvey OrtizDO [address] [place] [address], [address], [facility] 03/04/2019 15:39:05 Imaging Results None recorded. Procedure Notes None recorded. Medical Equipment None Reported. Allergies Allergen ID Allergen Name Allergen Category Reaction Reaction Severity Criticality Documentation Date Start Date Code Code System Note Provider Name and Address Organization Details Recorded Time 2606 Iodinated contrast media (substanc e) medicatio n Not available Not available Not available 03/12/2018 13677 2004 SNOMED Pt said he only had a react ion once and unsur e of if this is the cause . [facility] 0 14:05:56 4638 venlafaxi ne medicatio n rash moderate Not available 10/18/2020 37396 RxNorm Harvey Ortiz, DO [address] [place], [address], [facility] 14:07:32 4639 duloxetin e medicatio n Not available Not available Not available 10/18/2020 45400 RxNorm Harvey Ortiz, [address] [place], [address], [facility] 14:07:38 Medications Name Sig Start Date [...] THE MORNING AND THEN 12 HOURS LATER. 01/21 completed Not Available Not Available Not Available tramadol 50 mg tablet TAKE 1 [...] LAYER TO ENTIRE BURN AREA BY TOPICALRO TANANA 2 TIMES PER DAY 05/25 completed Not [...] 1 TABLET BY MOUTH TWICE A DAY. 01/21 completed Not Available Not Available Not Available lorazepam 1 mg tablet 06/11 completed [...] completed Not Available Not Available Not Available lactulose 10 gram/15 mL oral solution Take 15 mL by oral route as needed for 30 days, for constipat ion. 2024 active Not Available Not Available Not Avai lable Flovent HFA 110 mcg/actuati on aerosol inhaler [...] Available Not Available Vitals Date Recorded Body weight Body mass index (BMI) Body height Heart rate Oxygen saturation Oxygen saturation in Arterial blood by Pulse oximetry Systolic And Diastolic Provider Name and Address Organization Details Last Updated DateTime 3 907820. 4 g 34.3 kg/m2 174.63 cm 74 /min 94 % 94 % 132/70 mm[Hg] Harvey Ortiz, DO [address] [place], [address] , [facility] 3 11:29:59 Date Recorded Body height Body mass index (BMI) Body weight Heart rate Oxygen saturation Oxygen saturation in Arterial blood by Pulse oximetry Systolic And Diastolic Provider Name and Address Organization Details Last Updated DateTime 5 172.72 cm 30.4 kg/m2 24920.4 7 g 98 /min 64 % 64 % 112/64 mm[Hg] Kiya Tenorio [facility] 5 15:05:52 Date Recorded Body height Body mass index (BMI) Body weight Systolic And Diastolic Provider Name and Address Organization Details Last Updated DateTime 10/02/2023 172.72 cm 30.4 kg/m2 36623.47 g 120/70 mm[Hg] Kiya Tenorio [facility] 10/02/2023 14:08:50 Date Recorded Body height Body mass index (BMI) Body weight Heart rate Oxygen saturation Oxygen saturation in Arterial blood by Pulse oximetry Systolic And Diastolic Provider Name and Address Organization Details Last Updated DateTime 5 172.72 cm 24.6 kg/m2 27546.5 3 g 64 /min 94 % 94 % 110/70 mm[Hg] Abiola Land [facility] 5 13:39:43 Social History Question Answer Notes LastModified by Organizat ion Details LastModified Time Tobacco Smoking Status Current Some Day Smoker Not Available [facility] 02/02/2020 03:36:24 What Was The Date [...] mcg/0.3 mL dose 07/03/19 21 completed [facility] 10/17/2020 16:48:03 Influenza, split virus, quadrivalent, preservative 12/13/19 18 completed Sonia collins, [facility] 08/26/2019 14:05:15 Pneumococcal conjugate PCV 13 12/13/19 18 [facility] 14:05:15 COVID-19, mRNA, LNP-S, PF, 30 mcg/0.3 mL dose 02/10/20 21 completed ALISA BELL [address] [place] [address], [address], [facility] 02/11/2021 09:43:10 COVID-19, mRNA, LNP-S, PF, 30 mcg/0.3 mL dose 07/14/19 22 completed [facility] 07/14/2021 13:29:33 SARS-COV-2 (COVID-19) vaccine, UNSPECIFIED 03/08/20 23 completed Harvey Ortiz DO [address] [place] [address], [address], [facility] 03/09/2023 13:05:21 Respiratory syncytial virus (RSV) MAB, unspecified 04/25/19 24 completed Harvey Ortiz DO [address] [place] [address], [address], [facility] 04/27/2023 15:14:23 SARS-COV-2 (COVID-19) vaccine, UNSPECIFIED 12/03/19 24 completed Harvey Ortiz DO [address] [place] [address], [address], [facility] 12/06/2023 06:49:29 influenza nasal, unspecified formulation 12/03/19 24 completed Harvey Ortiz DO [address] [place] [address], [address], [facility] 12/06/2023 06:49:43 Influenza, split virus, quadrivalent, preservative 12/10/19 19 completed Sonia collins [facility] 08/26/2019 14:05:15 pneumococcal polysaccharide PPV23 01/27/20 19 completed Sonia collins, [facility] 08/26/2019 14:05:15 Influenza, split virus, quadrivalent, preservative 01/08/20 20 completed Tanisha Bustoschris [facility] 01/12/2020 08:15:59 COVID-19, mRNA, LNP-S, PF, 30 mcg/0.3 mL dose 06/19/19 21 completed Lauren Larios [facility] 06/22/2020 15:29:17 Past Encounters Encounter ID Performer Location Encounter Start Date Encounter Closed Date Diagnosis/Indication Diagnosis SNOMED-CT Code Diagnosis ICD10 Code Diagnosis IMO Codes Diagnosis Note [id number],[place] [address] 03/12/2018 14:23:34 03/12/2018 15:41:37 Pre-surgery evaluation 714953545 Z01.818 is here for surgical pre op eval and is certainly cleared for his proposed cataract removal Edema of l ower extremity 926690555 R60.0 will wear support stockings for leg edema and we will rechk in 2 wks [id number] Harvey Ortiz [address], [place] [address] 04/04/2018 10:55:56 04/04/2018 12:05:39 Edema of lower extremity 098816175 R60.0 will wear support stockings for leg edema will also have him see a vascular dr for eval of poss etiologies as i am unable to determine [id number] Harvey Ortiz [facility] [address],[place] [address] 05/12/2018 15:13:44 05/12/2018 15:50:39 Eczema 83697261 L30.9 will use desonide Edema of l ower extremity 242033203 R60.0 will wear support stockings for leg edema will also have him see a vascular dr for eval of poss etiologies as i am unable to determine [id number] Harvey Ortiz [facility] [address] [facility],[place] [address] 06/16/2018 14:56:00 06/16/2018 16:16:38 Edema of lower extremity 816918863 R60.0 will wear support stockings for leg edema will also have him see a vascular dr for eval of poss etiologies as i am unable to determine Reactive a irway disease 0901121410 06 J45.909 doing very welll now asymptomat ivc seen by dr clement Anxiety 58674527 F41.9 hard to sleep at night [id number] Harvey Ortiz [facility] [address] [facility],[place] [address] 12/08/2018 14:46:15 12/08/2018 16:05:14 Panic disorder 977897259 F41.0 is having about tw0 episodes during the day but this has been the standard because of the poss of a reaction to the duloxetine i will lower his duloxetine to 30 Edema of l ower extremity 009912245 R60.0 will wear support stockings for leg edema will also have him see a vascular dr for eval of poss etiologies as i am unable to determine Generalize d skin eruption caused by drug and medicament 279696685 L27.0 will decrease the dose to 30mg [id number] Harvey Ortiz [facility] [address] [facility],[place] [address] 02/11/2019 11:27:27 02/11/2019 12:06:35 Right side sciatica 8677836389 35301 M54.31 [id number] Harvey Ortiz [facility] [address] [facility],[place] [address] 06/12/2019 14:25:45 06/12/2019 15:26:50 Anxiety 16563674 F41.9 hard to sleep at night relates not doing well since he had decreased the dose back in the fall Panic disorder 687228196 F41.0 is having about tw0 episodes during the day at least and is not functionin g Adult heal examination 806943133 Z00.00 [id number] Harvey Ortiz, DO [facility] [address] [facility], [place] [facility] [place] [address] 08/26/2019 13:57:54 08/26/2019 14:41:00 Edema of lower extremity 892179739 R60.0 will wear support stockings for leg edema has been seen by vascular Benign pro static hyperplasia 561391218 N40.1 psa is 0.97 does well with tamsulosin Panic disorder 645149617 F41.0 has been stable since on duloxetine [id number] Harvey Ortiz, DO 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 also it seems that the duloxetine has caused a problem with his skin>>>>>? CONSIDER CHANGE TO EFFEXOR Panic disorder 771551513 F41.0 has been stable since on duloxetine but question if having symptoms as noted above Tinea corporis 89660509 B35.4 use the ketoconaoz le STOP USING IVORY SOAP AND DETERGENT SOAP add difucan tablet and prednisone Tinea pedis 0439961 B35. 3 will have him try ketoconazo le [id number] Harvey Ortiz [facility] [address] [facility] [address] 07/06/2020 15:56:54 07/06/2020 16:41:46 Edema of lower extremity 322095899 R60.0 will wear support stockings for leg edema has been seen by vascular Anxiety 68930700 F41.9 much better and we will cont venalfax Depressive disorder 4426 9007 F32.9 has been a n issue but is finally doing better with new venlafax med [id number] Harvey Ortiz [facility] [address] [facility], [place] [facility] [place] [address] 10/18/2020 13:54:26 10/18/2020 14:58:40 Anxiety 49875786 F41.9 we will have to try the paxil again per pt request Edema of l ower extremity 036810298 R60.0 will wear support stockings for leg edema has been seen by vascular [id number] Harvey Ortiz [facility] [address] [facility] [place] [address] 11/25/2020 14:26:59 11/25/2020 15:35:04 Tinea cruris caused by Trichophyton rubrum 79890285 B35.6 Edema of l ower extremity 218313989 R60.0 will wear support stockings for leg edema discussed the use of zipper support hose has been seen by vascular Tobacco de pendence syndrome 58528197 F17.200 not stopping Abdominal aortic aneurysm screening 672697445 Z13.6 [id number] Harvey Ortiz [facility] [address] [facility], [place] [facility] [place] [address] 07/25/2021 15:50:49 07/25/2021 16:39:04 Anxiety 90928193 F41.1 will increase Panic disorder 374554291 F41.0 stable on current dose of xanax Benign pro static hyperplasia with outflow obstruction 355662224 N13.8 needs refill of his medication Muscle pain 33370415 M79 .18 the patient has multiple aches in mutliple places after the vaccinewil l hold on work up Seborrheic dermatitis 50 643911 L21.8 currently doing okayif he has another flare up he can call for treatment Lymphedema of lower extremity 061776332 I89.0 bilateral, R>L, uses compressio n stockingsa lrronna saw the lymphedema clinic, no improvemen t with methods they used [id number] [facility] [address] [facility], [place] [address] 09/19/2022 11:22:46 09/19/2022 13:32:37 Panic disorder 468507080 F41.0 we have him back on the paxil and he seems stable with this and also has noted to have gained wgt since then Anxiety 09933581 F41.9 we will have to try the paxil again per pt request Benign pro static hyperplasia 014520324 N40.1 psa is 0.97 does well with tamsulosin except having a lot of dripping will need to cont to take this as it makes a huge diff Lymphedema of lower extremity 414340942 I89.0 cont to have him with the usual treatment we have done for years Rash of groin 0373751290 5745587 R21 noted since the prostate leakage of urine Localized eruption of skin 589391068 R21 has tinea of his left axilla will use the betameth clotrim Pain of le ft ankle joint 0200467485 4668389 M25.572 will start with an xr [id number] [facility] [address] [facility],[place] [address] 10/02/2023 13:51:39 10/02/2023 14:53:09 Renewal of prescription 924361112 Z76.0 done Depression screening 171 995257 Z13.31 equiv Irritable bowel syndrome with diarrhea 654193609 K58.0 needs refill Tinea cruris 143401052 B 35.6 Hearing loss 94269431 H9 1.93 Adult heal th examination 793150081 Z00.00 [id number] [facility] [address] [facility],[place] [address] 05/25/2024 08:30:44 05/25/2024 16:16:49 Edema of lower extremity [id number] R60.0 will wear support stockings for leg edema discussed the use of zipper support hose has been seen by vascular Panic disorder [id number] F41.0 we have him back on the paxil and he seems stable with this and also has noted to have gained wgt since then Benign pro static hyperplasia [id number] N40.1 psa is 0.97 does well with tamsulosin except having a lot of dripping will need to cont to take this as it makes a huge diff but we will add finasterid e 5 mg and he will get back to me in a month Male hot flash [id number] 1 79630 R23.2 will try black cohosh let me klnow [id number] [facility] [address] [facility],[place] [address] 09/25/2024 15:01:25 09/25/2024 15:43:18 Depression screening [id number] Z13.31 equiv Exudative age-related macular degeneration [id number] H35.3211 [id number] having active treatment with L[facility] Left inguinal hernia 236 [id number] K40.90 [id number] Pre-surger y evaluation [id number] Z01.818 is here for surgical pre op eval and is certainly cleared for his proposed cataract removal [id number] Harvey Ortiz [facility] [address] [facility],[place] [address] 01/18/2025 13:29:13 01/18/2025 14:25:30 Screening for malignant neoplasm of colon [id number] Z12.11 Depression screening 171 [id number] Z13.31 equiv Anxiety 61239261 F41.9 we will have to try the paxil again per pt request Fatigue 17541672 R53.83 [id number] not sure where these symptoms came fromhe [...] Name 2025 2 [place]) [id number] Sha Tinajero Jr [id number] Sha Tinajero 2025 1 MEDICARE B-IN: [facility] Sha Tinajero Jr [id number] Sha Tinajero Notes Date Note Type Note Provider Name and Address Organization Details Recorded Time 3 text/html ROS as noted in the HPI [...] is his usualstill smoking as usual Harvey Ortiz DO [address] [place] [address], [phone], [facility] 09/19/2022 11:51:49 4 text/html needs refill for his abdomen Harvey Ortiz DO [address] [place] [address], [phone], [facility] 10/02/2023 14:48:03 5 text/html ROS as noted in the HPI patient is evaluated via tele/video assessment per patient consentduring current pandemicappt is for a med check Harvey Ortiz DO [address] [place] [address], [phone], [facility] 05/25/2024 16:00:21 5 text/html ROS as noted in the HPI here for medication reviewalso has a poss hernia on left no painful present for over a monthalso has wet mac degen OD and getting injections to retina Harvey Ortiz DO [address] [place] [address], [phone], [facility] 09/25/2024 15:38:18 5 text/html Anxiety/DepressionRepor sarita by PatientHPIFor severity, patient [...] days and only happened during sleep Harvey Ortiz, DO [address] [facility], [place], [address], [facility] 01/18/2025 14:14:05
--- OUTSIDE RECORDS SUMMARY | 2025-01-29 15:53 | XMS_ITS | Encounter Summary ---
Author Organization [facility] Address [address] [facility] [address] [place] [address] Phone Care Team Providers Care Polysomnographer Name Role Phone Harvey Ortiz DO Primary Care Provider [phone] Harvey Ortiz DO Primary Care Provider [phone] Encounter Details Date Type Department Care Team (Late st Contact Info) Description 11/25/2020 Transcribe Orders Virtual Department [address] [place] [address] Harvey Ortiz DO [address] [place] [address] [email or web address] Encounter for screening for cardiovascular disorders (Primary Dx) Social History Tobacco Use Types Packs/Day Years Used Date Smoking Tobacco: Every Day Cigarettes Smokeless Tobacco: Never Sex and Gender Information Value Date Recorded Sex Assigned at Not on file Legal Sex Male 10:01 PM EDT Gender Identity Not on file Sexual Orientation Not on file documented as of this encounter Plan of Treatment Upcoming Encounters Date Type Department Care Team (Late st Contact Info) Description 01/22/2025 Procedure Pass [address] [address] 03/02/2025 6:45 PM EST Appointment [address] [address] Harvey Ortiz DO [address] [place] [address] documented as of this encounter Results * US Abdominal Aortic Screening (12/16/2020 10:04 AM EDT) Anatomical Region Laterality Modality Abdomen Ultrasound 12/16/2020 5:13 PM EDT Impressions 12/16/2020 5:15 PM EDT *No evidence of abdominal aortic aneurysm. Narrative 12/16/2020 5:15 PM EDT US ABDOMINAL AORTIC SCREENING TECHNIQUE: Duplex US examination of the abdominal aorta and kidneys was performed using a combination of delaney scale, color and pulsed wave Doppler. INDICATIONS: Peripheral arterial disease, atherosclerosis, question abdominal aorta aneurysm COMPARISON: None available. FINDINGS: Technically adequate exam demonstrates: Examination of the abdominal aorta demonstrates no evidence of aneurysm. The abdominal aorta measures 2.5 cm proximally, 2.1 cm in its midportion, and 1.9 cm distally. The common iliac arteries are normal measuring 1.4 cm on the right and 1.2 cm on the left. Procedure Note Michele Berman MD, CHANCE - 12/16/2020 US ABDOMINAL AORTIC SCREENING TECHNIQUE: Duplex US examination of the abdominal aorta and kidneys wasperformed using a combination of delaney scale, color and pulsed waveDoppler. INDICATIONS: Peripheral arterial disease, atherosclerosis, questionabdominal aorta aneurysm COMPARISON: None available. FINDINGS: Technically adequate exam demonstrates: Examination of the abdominal aorta demonstrates no evidence of aneurysm.The abdominal aorta measures 2.5 cm proximally, 2.1 cm in itsmidportion, and 1.9 cm distally. The common iliac arteries are normal measuring 1.4 cm on the right and 1.2cm on the left. IMPRESSION: *No evidence of abdominal aortic aneurysm. us Harvey Ortiz DO IMG US ABDOMEN Final Result documented in this encounter Visit Diagnoses Diagnosis Encounter for screening for cardiovascular disorders- Primary Encounter for screening for cardiovascular disorders documented in this encounter Care Teams Polysomnographer Relationship Specialty Start Date End Date Harvey Ortiz DO [email or web address] PCP - General Internal Medicine 03/12/18 11/30/24 Harvey Ortiz DO [address] [place] [address] PCP - General Internal Medicine 12/01/24 documented as of this encounter Additional Source Comments The information contained in this document represents components of the legal health record. It is not the complete legal health record.[facility]
--- OUTSIDE RECORDS SUMMARY | 2025-01-29 15:53 | XMS_ITS | Encounter Summary ---
Author Organization [facility] Address [address] [facility] [address] [place] [address] Phone Care Team Providers Care Critical Care Specialist Name Role Phone Harvey Ortiz DO Primary Care Provider [phone] Harvey Ortiz DO Primary Care Provider [phone] Encounter Details Date Type Department Care Team (Latest Contact Info) Description 06/28/2020 Ancillary Orders Virtual Department [address] [place] [address] Nilesh Pardo, DO [address] [place] [address] [email or web address] Spondylosis of lumbar region without myelopathy or radiculopathy Social History Tobacco Use Types Packs/Day Years [...] st Contact Info) Description 01/22/2025 Procedure Pass [address] [address] 03/02/2025 6:45 PM EST Appointment [address] [address] Harvey Ortiz, DO [address] [place] [address] documented as of this encounter Results * XR LUMBOSACRAL SPINE 4 OR MORE VIEWS (06/29/2020 3:13 PM EDT) Anatomical Region Laterality Modality L-spine Computed Radiogr aphy 06/29/2020 3:41 PM EDT Impressions 06/29/2020 3:49 PM EDT 1. Grade 1 spondylolisthesis of L4 and L5 does not appear significantly changed from 02/13/2019. No evidence of significant instability. 2. Severe bilateral facet arthropathy at L4-L5. 3. Severe degenerative disc and endplate changes at L5-S1. Narrative 06/29/2020 3:49 PM EDT HISTORY: Low back pain. COMPARISON: MRI of lumbar spine 03/01/2019, lumbar spine x-ray 02/13/2019. VIEWS: AP, lateral and bilateral oblique views. Lateral views obtained in the neutral position and during flexion and extension. FINDINGS: No compression fractures. 7 mm of spondylolisthesis of L4 on L5 in the neutral position which appears very similar to 02/13/2019. This measures approximately 5 mm during flexion and extension. No other subluxations. Similar prominent disc space narrowing and degenerative endplate changes at L5- S1. Fairly mild disc space narrowing and degenerative endplate changes at L4-L5. Bridging anterior osteophytes in the lower thoracic spine and at the thoracal lumbar junction. Small-moderate sized anterior osteophytes at L1-L2. Severe bilateral facet arthropathy at L4-L5 which appears similar to 02/13/2019. Procedure Note Sami Swann MD - 06/29/2020 HISTORY: Low back pain. COMPARISON: MRI of lumbar spine 03/01/2019, lumbar spine x-ray02/13/2019. VIEWS: AP, lateral and bilateral oblique views. Lateral views obtained inthe neutral position and during flexion and extension. FINDINGS: No compression fractures. 7 mm of spondylolisthesis of L4 on L5 in theneutral position which appears very similar to 02/13/2019. This measuresapproximately 5 mm during flexion and extension. No other subluxations. Similar prominent disc space narrowing and degenerative endplate changesat L5- S1. Fairly mild disc space narrowing and degenerative endplatechanges at L4-L5. Bridging anterior osteophytes in the lower thoracicspine and at the thoracal lumbar junction. Small-moderate sized anteriorosteophytes at L1-L2. Severe bilateral facet arthropathy at L4-L5 which appears similar to02/13/2019. IMPRESSION: 1. Grade 1 spondylolisthesis of L4 and L5 does not appear significantlychanged from 02/13/2019. No evidence of significant instability. 2. Severe bilateral facet arthropathy at L4-L5. 3. Severe degenerative disc and endplate changes at L5-S1. 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 It is not the complete legal health record.[facility]
--- OUTSIDE RECORDS SUMMARY | 2025-01-29 15:53 | XMS_ITS | Encounter Summary ---
Author Organization [facility] Address [address] [address] Phone Care Team Providers Care Reconciliation Machine Operator Name Role Phone Harvey Ortiz DO Primary Care Provider [phone] Harvey Ortiz DO Primary Care Provider [phone] Encounter Details Date Type Department Care Team (Late st Contact Info) Description 02/24/2019 Procedure Pass [address] [address] Social History Tobacco Use Types Packs/Day Years Used Date Smoking Tobacco: Never Assessed Sex and Gender Information Value Date Recorded Sex Assigned at Not on file Legal Sex Male 10:01 PM EDT Gender Identity Not on file Sexual Orientation Not on file documented as of this encounter Last Filed Vital Signs Vital Sign Reading Time Taken Comments Blood Pressure - - Pulse - - Temperature - - Respiratory Rate - - Oxygen Saturation - - Inhaled Oxygen Concentration - - Weight 86.2 kg (190 lb) 02/25/2019 9:03 AM EST Height 177.8 cm (5' 10 ) 02/25/2019 9:03 AM EST Body Mass Index 27.26 02/25/2019 9:03 AM EST documented in this encounter Plan of Treatment Upcoming Encounters Date Type Department Care Team (Late st Contact Info) Description 01/22/2025 Procedure Pass [address] [address] 03/02/2025 6:45 PM EST Appointment [address] [address] Harvey Ortiz DO [address] [facility] [place] [address] documented as of this encounter Visit Diagnoses Not on filedocumented in this encounter Care Teams Reconciliation Machine Operator Relationship Specialty Start Date End Date Harvey Ortiz DO PCP - General Internal Medicine 03/12/18 11/30/24 Harvey Ortiz DO [address] [place] [address] PCP - General Internal Medicine 12/01/24 documented as of this encounter Additional Source Comments The information contained in this document represents components of the legal health record. It is not the complete legal health record.[facility]
--- OUTSIDE RECORDS SUMMARY | 2025-01-29 15:54 | XMS_ITS | Encounter Summary ---
Author Organization [facility] Address [address] [facility] [address] [place] [address] Phone Care Team Providers Care Oil Pipeline Dispatcher Name Role Phone Harvey Ortiz DO Primary Care Provider [phone] Harvey Ortiz DO Primary Care Provider [phone] Encounter Details Date Type Department Care Team (Late st Contact Info) Description 02/11/2019 Transcribe Orders Virtual Department [address] [place] [address] Harvey Ortiz, [address] [facility] [place] [address] People Operating [email or web address] Right sided sciatica (Primary Dx); Generalized abdominal pain Social History Tobacco Use Types Packs/Day Years [...] st Contact Info) Description 01/22/2025 Procedure Pass [address] [address] 03/02/2025 6:45 PM EST Appointment [address] [address] Harvey Ortiz, DO [address] [place] [address] [email or web address] documented as of this encounter Results * XR LUMBOSACRAL SPINE 4 OR MORE VIEWS (02/13/2019 9:39 AM EST) Anatomical Region Laterality Modality L-spine Radiographic Ashlie ging 02/13/2019 12:4 2 PM EST Impressions 02/13/2019 12:46 PM EST 1. Grade 1 anterolisthesis of L4 on L5. 2. Moderate degenerative changes at L5-S1 with marked disc space narrowing. POS - [id number] Narrative 02/13/2019 12:46 PM EST EXAM: XR LUMBOSACRAL SPINE 4 OR MORE VIEWS COMPARISON: None FINDINGS: Mild dextrocurvature of the lumbar spine. Lumbar lordosis is maintained. Grade 1 anterolisthesis of L4 on L5. Vertebral body heights are relatively maintained. Marked disc space narrowing at L5-S1 associated with endplate sclerotic changes and small marginal osteophytes. Prominent facet arthropathy in the lower lumbar spine. Bilateral sacroiliac joints are congruent. Procedure Note Chance Muller MD - 02/13/2019 EXAM: XR LUMBOSACRAL SPINE 4 OR MORE VIEWS COMPARISON: None FINDINGS: Mild dextrocurvature of the lumbar spine. Lumbar lordosis is maintained.Grade 1 anterolisthesis of L4 on L5. Vertebral body heights are relativelymaintained. Marked disc space narrowing at L5-S1 associated with endplatesclerotic changes and small marginal osteophytes. Prominent facetarthropathy in the lower lumbar spine. Bilateral sacroiliac joints arecongruent. IMPRESSION: 1. Grade 1 anterolisthesis of L4 on L5. 2. Moderate degenerative changes at L5-S1 with marked disc spacenarrowing. POS - [id number] us Harvey Ortiz DO IMG XR SPINE Final Result documented in this encounter Visit Diagnoses Diagnosis Right sided sciatica- Primary Sciatica Generalized abdominal pain Abdominal pain, generalized Right sided sciatica Sciatica documented in this encounter Care Teams Oil Pipeline Dispatcher Relationship Specialty Start Date End Date Harvey Ortiz DO [email or web address] PCP - General Internal Medicine 03/12/18 11/30/24 Harvey Ortiz DO [address] [place] [address] PCP - General Internal Medicine 12/01/24 documented as of this encounter Additional Source Comments The information contained in this document represents components of the legal health record. It is not the complete legal health record.[facility]
--- OUTSIDE RECORDS SUMMARY | 2025-01-29 15:54 | XMS_ITS | Clinical Summary ---
Author Organization [facility] Address [address] [facility] [address] [place] [address] Phone Care Team Providers Care Parquet Floor Layer Name Role Phone Harvey Ortiz DO Primary Care Provider [phone] Allergies Active Allergy Reactions Criticality Noted Date Comments Duloxetine Rash Low 11/08/2020 Iodinated Contrast Media Hives 11/08/2020 Venlafaxine Rash Medium 11/08/2020 Medications ALPRAZolam (XANAX) 0.5 MG tablet alprazolam 0.5 mg tablet TAKE 1 TABLET BY MOUTH THREE TIMES A DAY NEEDED Active azelastine (ASTEPRO) 205.5 mcg (0.15 %) [place] azelastine 205.5 mcg (0.15 %) nasal spray [place] 1 spray twice a day by intranasal route. Active albuterol (VENTOLIN HFA) 90 mcg/actuation inhaler Ventolin HFA 90 mcg/actuation aerosol inhaler Active diclofenac sodium (VOLTAREN) 75 MG EC tablet diclofenac sodium 75 mg tablet,delayed release TAKE 1 TABLET BY MOUTH TWICE A DAY WITH FOOD NEEDED FOR PAIN Active divalproex (DEPAKOTE) [address] tablet Active fluticasone propionate (FLOVENT HFA) 110 mcg/actuation inhaler Flovent HFA 110 mcg/actuation aerosol inhaler TAKE 2 PUFFS BY MOUTH TWICE A DAY Active PARoxetine (PAXIL) 20 MG tablet paroxetine 20 mg tablet TAKE 1 TABLET EVERY DAY BY ORAL ROUTE FOR 30 DAYS. Active tamsulosin (FLOMAX) 0.4 mg Cap tamsulosin 0.4 mg capsule Active therapeutic multivitamin tablet Take 1 tablet by mouth daily. Active ascorbic acid, vitamin C, (VITAMIN C) 500 MG tablet Take 500 mg by mouth daily. Active calcium carbonate/vitami n D3 (CALCIUM 600 + D,3, ORAL) qd Act sera diphenoxylate-at ropine (LOMOTIL) 2.5-0.025 mg per tablet TAKE 1 OR 2 TABLETS BY MOUTH EVERY 6 HOURS NEEDED FOR DIARRHEA 10/05/19 25 Active finasteride (PROSCAR) 5 mg tablet TAKE 1 TABLET BY MOUTH EVERY DAY FOR 30 DAYS Active morphine (MSIR) 30 MG tablet TAKE 1 TABLET BY MOUTH THREE TIMES A DAY NEEDED FOR SEVERE PAIN DIRECTED Active Medication-Free Text [place]-medicati on study Active vitamins A,C,R-atwy-jkydq r (PRESERVISION AREDS) 4,296 mcg-226 mg-90 mg Cap Take 1 capsule by mouth 2 (two) times a day with meals. Active desonide (DESOWEN) 0.05 % cream desonide 0.05 % topical cream 025 Discontin ued(No longer taking) econazole nitrate 1 % cream 1 application to affected area 09/15/19 11 025 Discontin ued(No longer taking) LORazepam (ATIVAN) 0.5 MG tablet lorazepam 0.5 mg tablet 025 Discontin ued(No longer taking) Encounters Date Type Department Care Team Description 01/22/2025 Transcribe Orders Virtual Department [address] [place] [address] Harvey Ortiz DO Hemiplegia affecting left nondominant side, unspecified etiology, unspecified hemiplegia type (Primary Dx) 01/18/2025 9:00 AM EDT Office Visit [facility] [address] [place] [address] Beatrice Santos MD Brachial plexus palsy (Primary Dx) 12/01/2024 1:47 PM EDT - 12/01/2024 3:08 PM EDT Emergency [facility] [address] [place] [address] Discharge Disposition: Home or Self Care 11/09/2024 12:00 PM EDT Office Visit [facility] [address] [place] [address] Thais Dangelo MD Unilateral recurrent inguinal hernia without obstruction or gangrene (Primary Dx) from Last 3 Months Immunizations Immunization Administration Dates Next Due COVID-19 (Pre-01/21) Pfizer Vaccine, mRNA, PF ,06/11/2020 Influenza High-Dose Trivalent Preservative Free IM 12/09/2018,12/20/2016 Influenza Quadrivalent Preservative Free IM 12/30 Influenza Recombinant Jak valent Preservative Free IM 01/08/2020 Influenza Trivalent Adjuvanted Preservative free IM 12/12/2017 Pneumococcal conjugate PCV13 12/12/2017 Pneumococcal polysaccharide PPSV23 01/26/2019 Social History Tobacco Use Types Packs/Day Years Used Date Smoking Tobacco: Every Day Cigarettes Smokeless Tobacco: Never Tobacco Cessation:Ready to Q uit: Not Asked; Counseling Given: Not Answered Alcohol Use Standard Drinks/Week Comments Yes 0 (1 standard drink = 0.6 oz pur e alcohol) Education Answer Date Recorded Are you interested in more education? Not on chace e 07/27/2022 Are you concerned about learning? Not on file 07/27/2022 No 07/27/2022 No 07/27/2022 Digital Access Answer Date Recorded No 08/25/2022 No 08/25/2022 Reliable internet access at home? Not on file 08/25/2022 Device with a working camera? Not on file Intimate Partner Violence Answer Date R ecorded Are you denied basic needs s uch as food, clothing, or medical care? No 12/01/2024 In the past 12 months have y ou been in a relationship with a person who hurts, threatens, or tries to control you? No 12/01/2024 Are you denied basic needs s uch as food, clothing, or medical care? No 12/01/2024 In the past 12 months have y ou been in a relationship with a person who hurts, threatens, or tries to control you? No 12/01/2024 Sex and Gender Information Value Date Recorded Sex Assigned at Not on file Legal Sex Male 10:01 PM EDT Gender Identity Not on file Sexual Orientation Not on file Last Filed Vital Signs Vital Sign Reading Time Taken Comments Blood Pressure 123/70 12/01/2024 3:00 PM EDT Pulse 70 12/01/2024 3:00 PM EDT Temperature 36.7 C (98.1 F) 12/01/2024 11:52 AM EDT Respiratory Rate 18 12/01/2024 3:00 PM EDT Oxygen Saturation 96% 12/01/2024 3:00 PM EDT Inhaled Oxygen Concentration - - Weight 88.9 kg (196 lb) 12/01/2024 11:52 AM EDT Height 177.8 cm (5' 10 ) 12/01/2024 11:52 AM EDT Body Mass Index 28.12 12/01/2024 11:52 AM EDT Plan of Treatment Upcoming Encounters Date Type Department Care Team (Late st Contact Info) Description 01/22/2025 Procedure Pass [address] [address] 03/02/2025 6:45 PM EST Appointment [address] [address] Harvey Ortiz, [address] [facility] [place] [address] [place] [address] [email or web address] Health Maintenance Due Date Last Done Comments Adult Td,Tdap Booster 1950 VALPROIC ACID (DEPAKENE) LEVEL 1950 DEPRESSION SCREENING 1963 SMOKING Hx and SMOKELESS TOBACCO SCREENING 01/16/1964 HEPATITIS C SCREENING 1969 COLOGUARD 01/16/1996 COLONOSCOPY 01/16/1996 COLORECTAL CANCER SCREENING 01/16/1996 FIT TEST 01/16/1996 FOBT 01/16/1996 SIGMOIDOSCOPY 01/16/1996 VIRTUAL COLONOSCOPY 01/16/1996 COVID-19 VACCINE ( season) 2025 12/21/2024, 12/03/2023, 03/08/2023, Additional history exists LIPID PANEL 10/09/2028 10/10/2023, 08/21/2019 PNEUMOCOCCAL VACCINES (50+ years) Completed 01/26/2019, 12/12/2017 ABDOMINAL AORTIC ANEURYSM (AAA) SCREENING Completed 12/16/2020 ZOSTER VACCINES Completed 03/15/2021, 01/02/2021 RSV VACCINE Completed 04/25/2023 INFLUENZA VACCINE Completed 11/18/2024, , 11/25/2022, Additional history exists HEPATITIS A VACCINES Aged Out No long er eligible based on patient's age to complete this topic HIB VACCINES Aged Out No longer eligi ble based on patient's age to complete this topic MENINGOCOCCAL VACCINES (ACWY) Aged Out No longer eligible based on patient's age to complete this topic MENINGOCOCCAL VACCINES (B) Aged Out N o longer eligible based on patient's age to complete this topic Medical Devices Not on file Procedures Procedure Name Priority Date/Time Associated Diagnosis Comments LIPID PANEL Routine 10/10/2023 8:03 AM EDT Screening for prostate cancer Routine general medical examination at a health care facility US ABDOMINAL AORTIC SCREENING Routine 12/16/2020 10:04 AM EDT Encounter for screening for cardiovascular disorders from Last 3 Months or Most Recently Relevant to Health Maintenance Results * (ABNORMAL) Lipid panel (10/10/2023 8:03 AM EDT) HDL 46 mg/dL [facility] Comment: Interpretation <40 mg/dL: Low HDL cholesterol (major risk factor for CHD) Greater than or equal to 60 mg/dL: High HDL cholesterol ( negative risk factor for CHD) HDL - cholesterol is affected by a number of factors, e.g. smoking, excerise, hormones, sex and age. CHOLESTEROL 205 0 - 240 mg/dL [facility] TRIGLYCERIDES 116 30 - 160 mg/dL [facility] LDL 136(H) 50 - 129 mg/dL [facility] Comment: LDL levels in terms of risk for coronary heart disease: <100 mg/dL: Optimal 100-129 mg/dL: Near or above optimal 130-159 mg/dL: Borderline high 160-189 mg/dL: High >190 mg/dL: Very High CARDIAC RISK RATIO 4.5 3.4 - 5.0 [facility] Blood 10/10/2023 8:03 AM EDT 10/10/2023 8:09 AM EDT us Harvey A Bigda DO LAB BLOOD ORDERABLES Final Resul t [facility] [address] [place] [address] * US Abdominal Aortic Screening (12/16/2020 10:04 [...] evidence of abdominal aortic aneurysm. us Harvey A Bigda DO IMG US ABDOMEN Final Result from Last 3 Months or Most Recently Relevant to Health Maintenance Insurance MEDICARE PART A & B [place] MED[employer] SUPPLEMENT MEDICARE PART A & B [place] MED[employer] SUPPLEMENT MEDICARE PART A & B [place] MEDEX SUPPLEMENT MEDICARE PART A & B [place] [employer] SUPPLEMENT MEDICARE PART A & B [place] [employer] SUPPLEMENT MEDICARE PART A & B [place] [employer] SUPPLEMENT MEDICARE PART A & B [place] [employer] SUPPLEMENT MEDICARE PART A & B [employer] SUPPLEMENT MEDICARE PART A & B [employer] SUPPLEMENT Care Teams Parquet Floor Layer Relationship Specialty Start Date End Date Harvey Ortiz DO [address] [place] [address] PCP - General Internal Medicine 12/01/24 Additional Source Comments The information contained in this document represents components of the legal health record. It is not the complete legal health record.[facility]
--- OUTSIDE RECORDS SUMMARY | 2025-01-29 15:54 | XMS_ITS | Encounter Summary ---
Author Organization [facility] Address [address] [facility] [address] [place] [address] Phone Care Team Providers Care Escalation Engineer Name Role Phone Harvey Ortiz DO Primary Care Provider [phone] Harvey Ortiz DO Primary Care Provider Encounter Details Date Type Department Care Team (Late st Contact Info) Description 08/21/2019 Transcribe Orders [facility] [address] [place] [address] Harvey Ortiz DO [address] [place] [address] Routine general medical examination at a health care facility (Primary Dx); Vitamin D deficiency, unspecified Social History Tobacco Use Types Packs/Day Years [...] st Contact Info) Description 01/22/2025 Procedure Pass [address] [address] 03/02/2025 6:45 PM EST Appointment [address] [address] Harvey Ortiz DO [address] [place] [address] documented as of this encounter Results * (ABNORMAL) 25-OH vitamin D (08/21/2019 9:35 AM EDT) 25 [place] VIT D (TOTAL) 22(L) 30 - 60 ng/mL [facility] Blood 08/21/2019 9:35 AM EDT 08/21/2019 10:20 AM EDT us Harvey A Bigda DO LAB BLOOD ORDERABLES Final Resul t Performing Organization Address City/[facility] Co de Phone Number [address] [address] * (ABNORMAL) Lipid panel (08/21/2019 9:35 AM EDT) [facility] HDL 54 mg/dL [facility] Comment: Interpretation <40 mg/dL: Low HDL cholesterol (major risk factor for CHD) Greater than or equal to 60 mg/dL: High HDL cholesterol ( negative risk factor for CHD) HDL - cholesterol is affected by a number of factors, e.g. smoking, excerise, hormones, sex and age. CHOLESTEROL 211 0 - 240 mg/dL [facility] TRIGLYCERIDES 101 30 - 160 mg/dL [facility] LDL 137(H) 50 - 129 mg/dL [facility] Comment: LDL levels in terms of risk for coronary heart disease: <100 mg/dL: Optimal 100-129 mg/dL: Near or above optimal 130-159 mg/dL: Borderline high 160-189 mg/dL: High >190 mg/dL: Very High CARDIAC RISK RATIO 3.9 3.4 - 5.0 C [facility] Blood 08/21/2019 9:35 AM EDT 08/21/2019 10:20 AM EDT us Harvey A Bigda DO LAB BLOOD ORDERABLES Final Resul t Performing Organization Address [facility] Co de Phone Number [address] [address] * PSA (screening) (08/21/2019 9:35 AM EDT) Pathologist [facility] PSA 0.97 0 - 4.00 ng/mL [facility] Blood 08/21/2019 9:35 AM EDT 08/21/2019 10:20 AM EDT us Harvey Maria De Jesus Bigda DO LAB BLOOD ORDERABLES Final Resul t [facility] [address] [place] [address] * CBC and differential (08/21/2019 9:35 AM EDT) WBC 5.86 4.00 - 11.00 K/uL [facility] Comment:Note Reference Range updates to all CBC and Differential results. RBC 4.45 3.90 - 5.69 M/uL [facility] HGB 14.1 12.4 - 17.3 g/dL [facility] Comment:Note updated Referen ce Ranges for all CBC and Differential results. HCT 41.8 37.0 - 51.0 % [facility] PLT 191 140 - 430 K/uL [facility] MCV 93.9 78.0 - 97.0 fL [facility] MCH 31.7 25.0 - 33.0 pg [facility] MCHC 33.7 32.0 - 36.0 g/dL [facility] RDW 14.9 11.0 - 15.0 % [facility] MPV 12.8 8.4 - 12.8 [facility] NRBC 0.00 0 /100 WBCs [facility] ABSOLUTE NRBC 0.00 0 K/uL [facility] DIFF METHOD Auto [facility] NEUTS 60.0 43.0 - 75.0 % [facility] LYMPHS 25.3 18.2 - 47.4 % [facility] MONOS 10.9 4.00 - 11.00 % [facility] EOS 2.6 0.0 - 8.0 % [facility] BASOS 0.7 0.0 - 2.0 % [facility] Granulocytes, immature (%) 0.5 0.0 - 0.9 % [facility] ABSOLUTE NEUTS 3.52 1.80 - 7.70 K/uL [facility] ABSOLUTE LYMPHS 1.48 1.00 - 3.10 K/uL [facility] ABSOLUTE MONOS 0.64 0.20 - 0.80 K/uL [facility] ABSOLUTE EOS 0.15 0.00 - 0.80 K/uL [facility] ABSOLUTE BASOS 0.04 0.00 - 0.09 K/uL [facility] Granulocytes, immature 0.03 0.00 - 0.05 K/uL [facility] Blood 08/21/2019 9:35 AM EDT 08/21/2019 10:20 AM EDT us Harvey A Bigda DO LAB BLOOD ORDERABLES Final Resul t [facility] [address] [place] [address] * (ABNORMAL) Comprehensive metabolic panel (08/21/2019 9:35 AM EDT) SODIUM 140 133 - 146 mmol/L [facility] POTASSIUM 4.4 3.3 - 5.1 mmol/L [facility] CHLORIDE 103 96 - 108 mmol/L [facility] CO2 27 21 - 35 mmol/L [facility] BUN 23(H) 6 - 19 mg/dL [facility] CREATININE 0.80 0.5 - 1.5 mg/dL [facility] GLUCOSE 112(H) 70 - 99 mg/dL [facility] ALBUMIN 4.1 3.9 - 4.8 g/dL [facility] TOTAL PROTEIN 6.4(L) 6.5 - 8.0 g/dL [facility] CALCIUM 8.9 8.4 - 10.3 mg/dL [facility] ALKALINE PHOSPHATASE 42 39 - 117 U/L [facility] TOTAL BILIRUBIN 0.6 0.0 - 1.2 mg/dL [facility] AST 29 0 - 37 U/L [facility] ALT 22 0 - 40 U/L [facility] GLOBULIN 2.3 1 - 4.8 g/dL [facility] EGFR 92 >59 mL/min/1.7 3m2 [facility] Comment:If patient is black, multiply result by 1.159. Estimated glomerular filtration rate calculated using the CKD-EPI equation. ANION GAP 14 10 - 20 mmol/L [facility] Blood 08/21/2019 9:35 AM EDT 08/21/2019 10:20 AM EDT us Harvey Ortiz DO LAB BLOOD ORDERABLES Final Resul t [facility] [address] [place] [address] documented in this encounter Visit Diagnoses Diagnosis Routine general medical examination at a health care facility- Primary Vitamin D deficiency, unspecified documented in this encounter Care Teams Escalation Engineer Relationship Specialty Start Date End Date Harvey Ortiz DO PCP - General Internal Medicine 03/12/18 11/30/24 Harvey Ortiz DO [address] [place] [address] PCP - General Internal Medicine 12/01/24 documented as of this encounter Additional Source Comments The information contained in this document represents components of the legal health record. It is not the complete legal health record.[facility]
--- OUTSIDE RECORDS SUMMARY | 2025-01-29 15:54 | XMS_ITS | Data Portability ---
Author Organization [place] - [facility], Allergy Address [address] [place] [phone] Care Team Providers Care Electronic Induction Hardener Name Role Phone JAYNA VEGA Primary Care Provider [phone] Assessment Encounter Date Assessment Date Assessment LastModified [...] By Organization Details Last Modified Time 12/02/2024 [id number] - Evaluate hearing aids covered by [employer] insurance. - Return hearing aids if unsatisfied. - Follow up to ensure appropriate hearing aids and support. [email or web address] Not available 12/02/2024 14:37:11 Please note: Parts of this encounter note have been generated by AI based on audio conversation. Patient consent was required prior to utilizing this technology. Content review was required prior to finalizing the note. [email or web address] Not available 12/02/2024 14:37:11 Reason for Referral None Reported. Results Created Date Observation Date Name Description Value Unit Range Abnormal Flag Note LastModifiedBy Organization Detail LastModifiedTime 12/03/19 audio gram No observ ation record ed. BARCODE Not Available 2024 14:56:04 01/30/20 25 10/28/2023 audio gram No observ ation record ed. [email or web address] Not Available 01/01 09:12:15 Result Notes None recorded. Problems Name Problem SNOMED Code Status Onset Date Resolution Date Notes Provider Name and Address Organization Details Recorded Time Impacted cerumen of bilateral ears 3414736125086 108 Active 2024 ROSA ISELA ALCAZAR MD [address], [address], [facility] 13:49:53 Sensorineur al hearing loss of bilateral ears 493578445 Active 2024 GONZALO NAVAS , AUD [address] [place] [address], [phone], [facility] 14:13:35 Problem Notes None recorded. Procedures Surgical History Date Name Laterality Status Provider Name and Address Organization Details Recorded Time Comp Audio with Tymps - 68207 & 58411 completed GONZALO NAAVS AUD 100 [facility],[address], [address], [facility] - [facility] 12/02/2024 14:13:32 hernia repair completed Laquita Hamilton [facility] 12/02/2024 13:49:45 Imaging Results None recorded. Procedure Notes None recorded. Medical Equipment None Reported. Allergies Allergen ID Allergen Name Allergen Category Reaction Reaction Severity Criticality Documentation Date Start Date Code Code System Note Provider Name and Address Organization Details Recorded Time 684993 Iodinated contrast media (substanc e) medicatio n Not available Not available Not available 12/02/2024 58910 2003 SNOMED Laquita collins [place] - [facility] 13:38:48 Medications Name Sig Start Date Stop [...] propionate 50 mcg/actuati on nasal spray,suspe nsion [place] 1 spray every day by intranasa l [...] Updated DateTime 12/02/2024 180.34 cm 26.5 kg/m2 22061.55 g Laquita Hamilton [place] - [facility] 12/02/2024 13:38:41 Social History None recorded. Functional Status None recorded. Mental Status None recorded. Family History Nothing Reported. Medical History Condition Response Allergies/Hayfever Y Arthritis Y Anxiety Y Hypertension Y Depression Y Asthma Y Past Encounters Encounter ID Performer Location Encounter Start Date Encounter Closed Date Diagnosis/Indication Diagnosis SNOMED-CT Code Diagnosis ICD10 Code Diagnosis IMO Codes Diagnosis Note [id number] ROSA ISELA SCHMIDT MD [facility] [address] [phone] 12/02/2024 12:46:17 12/02/2024 14:38:53 Impacted cerumen of bilateral ears 9946320143 440820 H61.23 703229 Sensorineu ral hearing loss of bilateral ears 291978377 H90.3 [id number] STAR GARCIA [facility] [address] [address] 12/02/2024 14:12:24 12/06/2024 14:00:53 Sensorineural hearing loss of bilateral ears 519391225 H90.3 [id number] Audiologic al evaluation results: Right ear: Mild [...] ID Guarantor Name 12/02/2024 1 [place] B[place] [employer] Sha Meyers [place] [id number] Sha Meyers Lior 12/02/2024 2 [place]) [id number] Sha Meyers Lior [place] [id number] Sha Tinajero Notes Date Note Type [...] He was previously evaluated in September at [facility], where mixed hearing loss was identified, and it was recommended that he see an ear, nose, and throat specialist due to concerns about potential issues with the small bones in the ears. 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 ROSA ISELA TURNER MD [address] [place] [address], [phone], [facility] - [facility] 12/02/2024 14:38:34
--- OUTSIDE RECORDS SUMMARY | 2025-01-29 15:54 | XMS_ITS | Encounter Summary ---
Author Organization [facility] Address [address] [facility] [address] [place] [address] Phone Care Team Providers Care Veterinary Physiologist Name Role Phone Harvey Ortiz DO Primary Care Provider [phone] Reason for Referral * MRI/CAT Scan - Authorized Specialty Diagnoses / Procedures Referred By Toño puentes Referred To Contact Radiology Diagnoses Hemiplegia affecting left nondominant side, unspecified etiology, unspecified hemiplegia type Procedures MRI Brain Harvey Ortiz DO [address] [facility] [place], [place] Phone: tel: fax: [email or web address] Referral ID Status Reason Start Date Expiration Date V isits Requested Visits Authorized [id number] Authorized 01/22/2025 01/22/2026 1 1 Encounter Details Date Type Department Care Team (Late st Contact Info) Description 01/22/2025 Transcribe Orders Virtual Department [address] [place] [address] Harvey Ortiz DO [address] [facility] [address] [email or web address] Hemiplegia affecting left nondominant side, unspecified etiology, unspecified hemiplegia type (Primary Dx) Social History Tobacco Use Types Packs/Day Years Used Date Smoking Tobacco: Every Day Cigarettes Smokeless Tobacco: Never Alcohol Use Standard Drinks/Week Comments Yes 0 [...] st Contact Info) Description 01/22/2025 Procedure Pass [address] [address] 03/02/2025 6:45 PM EST Appointment [address] [address] Harvey Ortiz DO [address] [facility] [address] [email or web address] Scheduled Orders Name Type Priority Associated Diagnoses Orde r Schedule MRI Brain Imaging Routine Hemiplegia affecting left nondominant side, unspecified etiology, unspecified hemiplegia type Expected: 01/22/2025, Expires: 01/22/2026 documented as of this encounter Visit Diagnoses Diagnosis Hemiplegia affecting left nondominant side, unspecified etiology, unspecified hemiplegia type- Primary documented in this encounter Care Teams Veterinary Physiologist Relationship Specialty Start Date End Date Harvey Ortiz DO [address] [place] [address] PCP - General Internal Medicine 12/01/24 documented as of this encounter Additional Source Comments The information contained in this document represents components of the legal health record. It is not the complete legal health record.[facility]
--- OUTSIDE RECORDS SUMMARY | 2025-01-29 15:54 | XMS_ITS | Encounter Summary ---
Author Organization [facility] Address [address] [place] [phone] Phone Care Team Providers Care Thinner Sprayer Name Role Phone Harvey Ortiz DO Primary Care Provider [phone] Harvey Ortiz DO Primary Care Provider [phone] Reason for Referral * Outpatient Procedure - Closed Specialty Diagnoses / Procedures Referred By Toño puentes Referred To Contact Diagnoses Localized edema Procedures Adult Echo TTE Harvey Ortiz DO Phone: tel: fax: [email or web address] Referral ID Status Reason Start Date Expiration Date Visits Re quested Visits Authorized [id number] Closed 03/12/2018 03/12/2019 1 1 Encounter Details Date Type Department Care Team (Late Contact Info) Description 03/12/2018 Ancillary Orders Virtual Department [address] [place] [address] Harvey Ortiz DO [address] [place] [address] [place] [address] [email or web address] Localized edema Social History Tobacco Use Types Packs/Day Years [...] (Late Contact Info) Description [facility] [address] [place] [address] 03/02/2025 6:45 PM EST Appointment [facility] [address] [place] [address] Harvey Ortiz, DO [address] [place] [address] [place] [address] [email or web address] documented as of this encounter Results * TTE COMPREHENSIVE (04/02/2018 9:55 AM EST) Body Surface Area 2.0 m2 Height 172 m Weight 86 kg Systolic BP 133 mmHg Diastolic BP 78 mmHg Interventricular Septum Thickness 7 mm Left Ventricle Internal Diameter End Diastole 54 42 - 58 mm Left Ventricle Internal Diameter End Systole 45 25 - 40 mm Left Ventricular Outflow Tract Diameter 19.00 mm LVOT VTI REST 173.00 mm Left Ventricular Outflow Tract Velocity 849.00 mm/s Left Ventricular Outflow Tract Gradient at Rest 3.00 mmHg Left Ventricular Posterior Wall Thickness 9 mm Ejection Fraction 55 50 - 75 Percent Aortic Valve Mean Gradient 5.00 mmHg Aortic Valve Time Velocity Integral 308.00 mm Aortic Valve Peak Velocity 1,560.00 mm/s Aortic Valve Peak Gradient 10.00 mmHg Aortic Sinus Diameter 33 mm Ascending Aorta Diameter 33 mm Inferior Vena Cava Diameter 19 0.0 - 21 mm Mitral Valve Deceleration Time 283.00 ms Mitral Valve A Wave Speed 466.00 mm/s Mitral Valve E Wave Speed 626.00 mm/s Right Ventricle Basal Diameter 41.30 25 - 41 mm Tricuspid Valve Peak Velocity 2.40 mm/s Raw LV EF% 31 % Left Atrial Volume 41 mL Left Atrial Volume Index 20.50 mL/m2 Aortic Valve Sinus Index 1 17 20 - 32 mm Ascending Aorta Diameter 17 mm Aortic Sinus Index 17 mm Ascending Aorta Index 17 mm Anatomical Region Laterality Modality Heart Ultrasound Narrative 04/02/2018 4:51 PM EST Left ventricular systolic function is normal. There are no segmental left ventricular wall motion abnormalities noted. The estimated ejection fraction is 55% (Normal 50-75% There is mild mitral regurgitation RVSP is 27 mmHg. Normal pulmonary pressures No prior studies for comparison Left Ventricle The left ventricular end diastolic dimension when indexed for height is normal. The left ventricular end diastolic dimension when indexed for body surface area is normal. The left ventricular cavity size and wall thickness are normal. Left ventricular systolic function is normal. There are no segmental left ventricular wall motion abnormalities noted. The estimated ejection fraction is 55% (Normal 50- 75%). The left ventricular ejection fraction was measured by visual estimate. There is no evidence of left ventricular thrombus. Right Ventricle The right ventricular size is normal. No evidence of right ventricular hypertrophy. The right ventricular systolic function is normal. Left Atrium The left atrium is normal in size. The LA volume is 41 mL. The LA volume index is 20.5 mL/m2 (normal indexed value is 16-34 mL/m2). The pulmonary venous flow profiles are normal. Pulmonary vein connections were not well seen. No evidence suggestive of pulmonary vein stenosis. Right Atrium The right atrium is normal in size. The IVC is normal in size (2.1cm or less). The IVC measures 19 mm (normal <=21 mm). The IVC demonstrates normal collapse with inspiration which is consistent with normal RA pressure. The hepatic veins appear normal in size. Mitral Valve MV E/A 1.3 E/E' 6.4 Sept Em 10 cm/s Lat Em 9.5 cm/s There is no evidence of mitral annular calcification. There is mild mitral regurgitation detected by spectral and color Doppler. The jet of the mitral regurgitation is eccentrically directed along the LA free wall. Tricuspid Valve The tricuspid valve appears normal. There is no evidence of tricuspid stenosis. TR pk Myles 2.4 m/s TR pkPG 24 mmHg. Assuming RAP is 3 mmHg., the RVSP is 27 mmHg. Normal pulmonary pressures. There is evidence of trace to mild tricuspid regurgitation by color and spectral Doppler. The jet of tricuspid regurgitation is directed laterally. Aortic Valve The aortic valve appears normal. The aortic valve is tricuspid. The leaflets appear normal in thickness. There is no evidence of valvular aortic stenosis. The peak aortic valve gradient is 10 mmHg. The mean aortic gradient is 5 mmHg. Pulmonic Valve The pulmonary valve appears normal. There is no evidence of pulmonic stenosis. There is evidence of trace to mild pulmonary regurgitation by color and spectral Doppler. Pericardium There is no evidence of pericardial effusion. There no evidence of a pleural effusion. Interatrial Septum The interatrial septum appears normal. Interventricular Septum Interventricular septal motion appears normal. General Findings The image quality was good (2). Patient appears to be in sinus rhythm. Technique(s) used in the evaluation: Color flow Doppler and Spectral Doppler. Comparison Findings No prior studies for comparison. us Harvey Ortiz DO CV ECHO ORDERABLES Final Result documented in this encounter Visit Diagnoses Diagnosis Localized edema Edema Localized edema Edema documented in this encounter Care Teams Thinner Sprayer Relationship Specialty Start Date End Date Harvey Ortiz DO [email or web address] PCP - General Internal Medicine 03/12/18 11/30/24 Harvey Ortiz DO [address] [place] [id number] PCP - General Internal Medicine 12/01/24 documented as of this encounter Additional Source Comments The information contained in this document represents components of the legal health record. It is not the complete legal health record.[facility]
== END 2025-01-29 15:49 | disposition home or self-care (01) ==
LOC: HO.MANLDS 15:48
PROVIDERS: Visit Provider Internal Medicine
DX: Z13.89 Encounter for screening for other disorder (principal)